=== PATIENT | male | born 1970 | race Caucasian/White ===

== ENCOUNTER 2023-02-12 12:27 | Outpatient (REF) | payer OTHER, SELFPAY ==
[2023-02-12 14:00] LABS: Hematocrit 45.9 % (42.0-52.0); Hemoglobin 15.8 g/dl (14.0-18.0); Mean Corpuscular HGB Conc 34.4 g/dl (31.0-36.0); Mean Corpuscular Hemoglobin 30.4 pg (27.0-33.0); Mean Corpuscular Volume 88.4 fL (80.0-98.0); Platelet Count 240 X10*3/uL (160-400); Red Blood Count 5.19 X10*6/uL (4.60-5.80); Red Cell Distribution Width 12.5 % (11.0-16.0)
[2023-02-12 14:21] LABS: Alanine Aminotransferase 37 U/L (0-40); Albumin Level 4.4 g/dL (3.5-5.0); Alkaline Phosphatase 63 U/L (39-117); Anion Gap 12 (12-20); Aspartate Amino Transferase 24 U/L (5-37); Bilirubin Total 0.4 mg/dL (0.0-1.0); Blood Urea Nitrogen 12 mg/dL (9-16); Calcium 9.4 mg/dL (8.4-10.2); Carbon Dioxide 23 mmol/L (22-29); Chloride 107 mmol/L (96-108); Cholesterol 165 mg/dL; Estimated Glomerular Filt Rate > 60; Glucose Fasting 145 mg/dL (60-99); HDL Cholesterol 30 mg/dL; LDL Cholesterol Calculated 112 mg/dl; Potassium 4.4 mmol/L (3.3-5.1); Sodium 138 mmol/L (135-145); Total Protein 6.7 g/dL (6.5-8.0); Triglycerides 119 mg/dL
[2023-02-12 14:43] LABS: TSH reflex Free T4 0.62 uIU/mL (0.32-4.0)
[2023-02-12 14:49] LABS: Creatinine Urine 162.78 mg/dL; Microalbum/Creatinine Ratio Ur 4.3 ug/mg cr
== END 2023-02-12 12:28 | disposition home or self-care (01) ==
LOC: HO.WFDLDS 12:27
PROVIDERS: Visit Provider Nurse Practitioner Family
DX: E11.9 Type 2 diabetes mellitus without complications (principal); E78.5 Hyperlipidemia, unspecified; F32.A Depression, unspecified; F41.9 Anxiety disorder, unspecified; I10 Essential (primary) hypertension; Z12.5 Encounter for screening for malignant neoplasm of prostate
CPT/HCPCS: 36415; 80053; 80061; 82043; 84153; 84443; 85027

== ENCOUNTER 2023-05-07 13:13 | Outpatient (AMB) | payer OTHER, SELFPAY ==
[2023-05-07 13:24] VITALS: BP 122/66; PULSE 58; RESP 12; TEMP 36.6; O2SAT 98; BMI 37.1
--- NOTE | 2023-05-07 13:24 | A.OFFPC_ITS ---
Vital Signs 05/07/23 13:24 Height 5 ft 7 in Weight 237 lb BMI 37.1 BP 122/66 Blood Pressure Location Rt brachial Position Sitting Respiration 12 Pulse 58 Pulse Source Pulse Oximeter Temp 97.8 F Temp Source Temporal Artery Scan Pulse Oximetry (%) 98 Oxygen Delivery Method Room Air Intake Visit Reasons: 3 mos diabetes, anxiety, depression, htn Visualization Developer Required: No Accompanied by: Self / Same As Patient Allergies No Known Allergies Allergy (Verified 05/07/23 13:54) Medication List - Last Reconciled 05/07/23 by Concha Garcia CNP aripiprazole 5 mg PO DAILY atorvastatin 20 mg PO DAILY dulaglutide (Trulicity) 1.5 mg (0.5 mL) subcut QWEEK 30 days escitalopram oxalate 20 mg PO DAILY eszopiclone 2 mg PO BEDTIME lisinopril 5 mg PO DAILY 30 days metformin ER 1,000 mg PO BID Tobacco use date assessed: 02/12/23 Dental Screening Dental Screen Date: 05/07/23 Did you have a dental visit in the last 12 months?: No Did you have a dental problem in the last 6 months where you did not have access to dental care?: No Was dental information given to patient?: Yes HPI HPI Comments History of Present Illness Details 52-year-old male presents for hypertension, diabetes, anxiety, and depression follow-up. He reports increased anxiety, depression, and sleep disturbance due to starting a new job. He works night shifts. He is followed by a therapist weekly and psychiatrist every 3-6 months. He states that he has not been contacted from podiatry and ophthalmology. [facility] Medical History Anxiety Depression Diabetes Insomnia Surgical History History of appendectomy Family History Mother Alcoholism Father Alcoholism Other Mental health disorder Substance abuse Social History Housing: Apartment Alcohol intake: never Patient Tobacco Use Status: Current everyday Tobacco user Cigarettes Per Day: 20 Years Smoked: 30 e-Cigarette/Vaping Use: Never Used service: No Current occupational status: employed and other Current occupation: [employer] Cognitive needs: No Hearing needs: No Vision needs: No Questionnaire PHQ-9 Over the last 2 weeks, how often have you been bothered by any of the following problems? 1. Little interest or pleasure in doing things: nearly every day 2. Feeling down, depressed, or hopeless: more than half the days 3. Trouble falling or staying asleep, or sleeping too much: nearly every day 4. Feeling tired or having little energy: more than half the days 5. Poor appetite or overeating: nearly every day 6. Feeling bad about yourself - or that you are a failure or have let yourself or your family down: more than half the days 7. Trouble concentrating on things, such as reading the newspaper or watching television: several days 8. Moving or speaking so slowly that other people could have noticed. Or the opposite - being so fidgety or restless that you have been moving around a lot more than usual: nearly every day 9. Thoughts that you would be better off or of hurting yourself in some way: not at all Total score: 19 Depression Screening Interpretation: Positive Depression Screening Follow-up: Existing condition and In treatment Source: Developed by Drs. Bala Gagnon, Denita Avila, Theodore Cleaning and colleagues, with an educational leyla from [employer]. Thrive Questionnaire Date Thrive assessed: 02/12/23 AVIS-7 AMB Questionnaire AVIS-7 Date AVIS - 7 assessed: 05/07/23 Feeling nervous, anxious, or on edge: 3 = Nearly every day Not being able to stop or control worryin = Nearly every day Worrying too much about different things: 3 = Nearly every day Trouble relaxin = Nearly every day Being so restless that it is hard to sit still: 3 = Nearly every day Becoming easily annoyed or irritable: 1 = Several days Feeling afraid as if something awful might happen: 1 = Several days Total AVIS-7 score (0-4 normal; 5-9 mild; 10-14 moderate; 15-21 severe): 17 Source: Developed by Drs. Bala Gagnon, Denita Avila, Theodore Cleaning and colleagues, with an educational leyla from [employer]. Review of Systems Const Details: Const Denies chills, Denies fatigue, Denies fever(s), Denies headache(s) and Denies weakness ENT Denies dizziness and Denies headache(s) Card Denies chest pain, Denies lightheadedness, Denies dyspnea and Denies other ( Palpitations) Resp Denies cough, Denies dyspnea, Denies wheezing and Denies other ( shortness of breath) GI Denies abdominal pain, Denies melena, Denies hematochezia, Denies change in bowel habits, Denies dyspepsia and Denies nausea Denies hematuria and Denies dysuria Musc Denies abnormal gait, Denies myalgias, Denies arthralgias, Denies numbness and Denies tingling Skin/Breast Denies rash, Denies unusual bruising and Denies wounds Neuro Denies abnormal gait, Denies dizziness, Denies headache(s), Denies memory loss, Denies numbness, Denies Sensory deficit (Neuro), Denies tingling and Denies weakness Psych Reports anxiety and Reports depression, Denies memory loss Endo Denies cold intolerance, Denies fatigue, Denies heat intolerance, Denies polydipsia and Denies polyuria Aller/Immun Denies wheezing Physical exam (Primary Care) Vital Signs: Last Vital Signs Temp 97.8 F 05/07/23 13:24 Pulse 58 05/07/23 13:24 Resp 12 05/07/23 13:24 BP 122/66 05/07/23 13:24 Pulse Ox 98 05/07/23 13:24 Oxygen Delivery Method Room Air 05/07/23 13:24 BMI result Body Mass Index 37.1 Tobacco/Smoking Status: Tobacco use Status Tobacco use date assessed 02/12/23 05/07/23 13:29 Patient Tobacco Use Status Current everyday Tobacco 05/07/23 13:29 e-Cigarette/Vaping Use Never Used 05/07/23 13:29 PHQ-9: PHQ-9 Score PHQ-9: Total score 05/07/23 13:39 Depression Screening Interpretation: Positive Depression Screening Follow-up: Existing condition and In treatment Thrive Assessment: Date of Thrive Assessment Date Thrive assessed 02/12/23 05/07/23 13:29 Const Other: General: no acute distress and well developed Nutritional Appearance: well nourished Orientation/consciousness: patient oriented x3 HENMT Head: Yes normocephalic and Yes atraumatic Eyes General: appearance normal, both eyes and all related structures Pupils: Equal, round and reactive pupils present EOM: EOMs intact bilaterally Resp Effort & Inspection: normal respiratory effort Auscultation: clear to auscultation bilaterally Cardio Rate: regular rate Rhythm: regular rhythm Heart sounds: S1 normal heart sound present, S2 normal heart sound present, no gallops, no murmurs and no rubs GI Palpation (GI): No Abdominal aortic bruit present, Soft to palpation, nontender, No hepatosplenomegaly present and No Rebound tenderness present Auscultation: normal bowel sounds General: Yes no CVA tenderness Back/Spine/Pelvis Back: no CVA tenderness Cervical Spine: cervical ROM normal and No Cervical spine tenderness Thoracic/Lumbar Spine: thoraco-lumbar ROM normal, No pain with thoraco-lumbar ROM, No thoracic spinal tenderness and No lumbar spinal tenderness Extrem General: Yes normal to inspection, No edema and No calf tenderness Skin General: warm and dry. Normal skin color. Normal skin turgor Lesions: no lesions Rashes: no rashes Trauma: no lacerations or abrasions Wounds: no wounds Nails: normal Neuro General: patient oriented x3, gait normal and no focal neuro deficit Cranial nerves: Yes Equal, round and reactive pupils present Cognition (Neuro): normal cognition Gait exam (Neuro): Normal gait present Motor exam (neuro): 5/5 motor strength present throughout Sensory Exam: No Sensory deficit (Neuro) Psych Appearance: grossly normal Affect: normal affect Attitude: cooperative Thought process: Normal thought process present Results AMB Hemoglobin A1c AMB Hemoglobin A1c 6.7 % Last Edit by Marika Figueroa MA on 05/07/23 13:46 Results Reviewed Results Reviewed: Laboratory Last Values Hgb A1c (Clinic) 6.7 % (4.0-6.0) H 05/07/23 13:45 Assessment and Plan Assessment & Plan (1) Hypertension: Code(s): I10 - Essential (primary) hypertension Plan: His blood pressure is controlled, 122/66, within goal of less than 130/80 Continue to take lisinopril as prescribed Low-sodium diet encouraged Return in 1 month for complete physical exam or sooner with symptoms or concerns Verbalized understanding and agreed with treatment plan. (2) Type 2 diabetes mellitus: Code(s): E11.9 - Type 2 diabetes mellitus without complications Plan: His A1c today is 6.7%, within goal of less than 7.0% Continue to take Trulicity and metformin as prescribed ADA diet and routine exercise encouraged Message sense to the MA to contact Podiatry and Ophthalmology regarding appointments for the patient Return in 1 month or sooner with symptoms or concerns Verbalized understanding and agreed with treatment plan. (3) Hyperlipidemia: Code(s): E78.5 - Hyperlipidemia, unspecified Plan: He is LDL in January 2023 was 112, above goal of less than 100 Lipid panel ordered. Encouraged to get fasting blood work done before next visit Continue take atorvastatin as prescribed Advised to limit foods high in saturated fat and avoid foods high in trans fat Routine exercise encouraged Return in 1 month Verbalized understanding and agreed with treatment plan. (4) Anxiety: Code(s): F41.9 - Anxiety disorder, unspecified Plan: He reports increased anxiety, depression, and sleep disturbance due to starting a new job. He works night shifts. PHQ-9 and AVIS-7 scores revealed moderately severe depression and severe anxiety Continue to take aripiprazole, escitalopram, and eszopiclone as prescribed Follow-up with therapist and psychiatrist as planned Routine exercise encouraged Return with worsening or new symptoms Verbalized understanding and agreed with treatment plan. (5) Depression: Code(s): F32.A - Depression, unspecified Plan: As above Orders: Orders Hemoglobin A1c Today E11.9 - Type 2 diabetes mellitus without complications Lipid Panel Today E78.5 - Hyperlipidemia, unspecified Coding Level of Care Code Est Pt Level 3 (46626) Diagnoses Hypertension I10 Type 2 diabetes mellitus E11.9 Hyperlipidemia E78.5 Anxiety F41.9 Depression F32.A Time Spent (min) 25
== END 2023-05-07 14:17 | disposition home or self-care (01) ==
PROVIDERS: Visit Provider Nurse Practitioner Family
DX: I10 Essential (primary) hypertension (principal); E11.9 Type 2 diabetes mellitus without complications; E78.5 Hyperlipidemia, unspecified; F41.9 Anxiety disorder, unspecified; F32.A Depression, unspecified
CPT/HCPCS: 99213

== ENCOUNTER 2023-05-07 14:03 | Outpatient (REF) | payer OTHER, SELFPAY | END 2023-05-07 14:04 | disposition home or self-care (01) | LOC: HO.LAB 14:03 | PROVIDERS: Visit Provider Nurse Practitioner Family | DX: Z13.89 Encounter for screening for other disorder (principal) ==

== ENCOUNTER 2024-01-20 11:39 | Outpatient (AMB) | payer OTHER, SELFPAY ==
[2024-01-20 11:56] VITALS: BP 116/70; PULSE 76; RESP 14; TEMP 36.6; O2SAT 99; BMI 35.4
--- NOTE | 2024-01-20 11:56 | A.OFFPC_ITS ---
Vital Signs 01/20/24 11:56 01/20/24 12:45 Height 5 ft 7 in Weight 226 lb 4 oz BMI 35.4 BP 116/70 110/70 Blood Pressure Location Lt brachial Rt brachial Position Sitting Sitting Respiration 14 Pulse 76 Pulse Source Pulse Oximeter Temp 97.8 F Temp Source Temporal Artery Scan Pulse Oximetry (%) 99 Oxygen Delivery Method Room Air Intake Visit Reasons: Diabetes check up Intake Note: patient needs refill on trulicity. 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 Accompanied by: Self / Same As Patient Allergies No Known Allergies Allergy (Verified 01/20/24 12:30) Medication List - Last Reconciled 01/20/24 by Concha Garcia CNP aripiprazole 5 mg PO DAILY atorvastatin 20 mg PO DAILY blood sugar diagnostic ([employer] Ultra Test strips) POC testing TID blood-glucose meter ([employer] Ultra2 Meter) POC testing TID dulaglutide (Trulicity) 1.5 mg (0.5 mL) subcut QWEEK 30 days escitalopram oxalate 20 mg PO DAILY eszopiclone 2 mg PO BEDTIME guanfacine ER 3 mg PO QPM lancets ([employer] UltraSoft 2 Lancet) POC testing TID lisinopril 5 mg PO DAILY 30 days metformin ER 500 mg PO BID 90 days Tobacco use date assessed: 01/20/24 Dental Screening Dental Screen Date: 01/20/24 Did you have a dental visit in the last 12 months?: No Did you have a dental problem in the last 6 months where you did not have access to dental care?: No Was dental information given to patient?: Yes HPI HPI Comments History of Present Illness Details 53-year-old male presents for diabetes f ollow-up His last office visit was in April 2023. He notes that he has not followed up because he has been very depressed. He continues to see his therapist once weekly and psychiatrist every 3 months. He denies anxiety or depression symptoms at this time He admits to taking Metformin and his psychotropic medications as prescribed wi thout adverse reactions. He has not been taking atorvastatin, and lisinopril since they ran out a year ago. He stopped taking Trulicity for a while after he stuck his finger during administration; he resumed taking the medication weekly in the past 2 weeks He offers no complaints and denies acute symptoms at this time [facility] Medical History (Updated 01/20/24 @ 12:07 by JAC Olsen) Tremor Insomnia Depression Anxiety Diabetes Surgical History History of appendectomy Family History Mother Alcoholism Father Alcoholism Other Mental health disorder Substance abuse Social History Housing: Apartment Alcohol intake: never Patient Tobacco Use Status: Current everyday Tobacco user Cigarette Packs Per Day: 0.5 Cigarettes Per Day: 10 Years Smoked: 30 e-Cigarette/Vaping Use: Never Used service: No Current occupational status: unemployed Cognitive needs: No Hearing needs: No Vision needs: No Questionnaire Thrive Questionnaire Date Thrive assessed: 02/12/23 AVIS-7 AMB Questionnaire AVIS-7 Date AVIS - 7 assessed: 05/07/23 Source: Developed by Drs. Bala Gagnon, Denita Avila, Theodore Cleaning and colleagues, with an educational leyla from [employer]. Review of Systems Const Details: Const Denies chills, Denies fatigue, Denies fever(s), Denies headache(s) and Denies weakness ENT Denies dizziness and Denies headache(s) Card Denies chest pain, Denies lightheadedness, Denies dyspnea and Denies other (Palpitations) Resp Denies cough, Denies dyspnea, Denies wheezing and Denies other ( shortness of breath) GI Denies abdominal pain, Denies melena, Denies hematochezia, Denies change in bowel habits, Denies dyspepsia and Denies nausea Denies hematuria and Denies dysuria Musc Denies abnormal gait, Denies myalgias, Denies arthralgias, Denies numbness and Denies tingling Skin/Breast Denies rash, Denies unusual bruising and Denies wounds Neuro Denies abnormal gait, Denies dizziness, Denies headache(s), Denies memory loss, Denies numbness, Denies Sensory deficit (Neuro), Denies tingling and Denies weakness Psych Denies anxiety, Denies depression, Denies memory loss Endo Denies cold intolerance, Denies fatigue, Denies heat intolerance, Denies polydipsia and Denies polyuria Aller/Immun Denies wheezing Physical exam (Primary Care) Vital Signs: Last Vital Signs Temp 97.8 F 01/20/24 11:56 Pulse 76 01/20/24 11:56 Resp 14 01/20/24 11:56 BP 116/70 01/20/24 11:56 Pulse Ox 99 01/20/24 11:56 Oxygen Delivery Method Room Air 01/20/24 11:56 BMI result Body Mass Index 35.4 Tobacco/Smoking Status: Tobacco use Status Tobacco use date assessed 01/20/24 01/20/24 12:08 Patient Tobacco Use Status Current everyday Tobacco 01/20/24 11:59 e-Cigarette/Vaping Use Never Used 01/20/24 11:59 Thrive Assessment: Date of Thrive Assessment Date Thrive assessed 02/12/23 01/20/24 11:59 Const Other: General: no acute distress and well developed Nutritional Appearance: well nourished Orientation/consciousness: patient oriented x3 HENMT Head: Yes normocephalic and Yes atraumatic Eyes General: appearance normal, both eyes and all related structures Pupils: Equal, round and reactive pupils present EOM: EOMs intact bilaterally Resp Effort & Inspection: normal respiratory effort Auscultation: clear to auscultation bilaterally Cardio Rate: regular rate Rhythm: regular rhythm Heart sounds: S1 normal heart sound present, S2 normal heart sound present, no gallops, no murmurs and no rubs GI Palpation (GI): No Abdominal aortic bruit present, Soft to palpation, nontender, No hepatosplenomegaly present and No Rebound tenderness present Auscultation: normal bowel sounds General: Yes no CVA tenderness Back/Spine/Pelvis Back: no CVA tenderness Cervical Spine: cervical ROM normal and No Cervical spine tenderness Thoracic/Lumbar Spine: thoraco-lumbar ROM normal, No pain with thoraco-lumbar ROM, No thoracic spinal tenderness and No lumbar spinal tenderness Extrem General: Yes normal to inspection, No edema and No calf tenderness Skin General: warm and dry. Normal skin color. Normal skin turgor Neuro General: patient oriented x3, gait normal and no focal neuro deficit Cranial nerves: Yes Equal, round and reactive pupils present Cognition (Neuro): normal cognition Gait exam (Neuro): Normal gait present Sensory Exam: No Sensory deficit (Neuro) Psych Appearance: grossly normal Affect: normal affect Attitude: cooperative Thought process: Normal thought process present Results AMB Hemoglobin A1c AMB Hemoglobin A1c 6.4 % Last Edit by JAC Olsen on 01/20/24 12:1 1 Results Reviewed Results Reviewed: Laboratory Last Values Hgb A1c (Clinic) 6.4 % (4.0-6.0) H 01/20/24 12:09 Assessment and Plan Assessment & Plan (1) Hypertension: Code(s): I10 - Essential (primary) hypertension Plan: Resting blood pressure is 110/70, within goal of less than 130/80 He has not taking lisinopril in a year. Will not restart lisinopril at this time Low-sodium diet encouraged Follow-up in 1 month for an extended physical exam or return sooner with symptoms or concerns Verbalized understanding and agreed with treatment plan (2) Type 2 diabetes mellitus: Code(s): E11.9 - Type 2 diabetes mellitus without complications Plan: His A1c today is 6.4%, within goal of less than 7.0%. Previous A1c was 6.7% He stop taking Trulicity for while and resume taking an old dose 2 weeks ago. Will not resume Trulicity at this time Continue to take metformin 500 mg twice daily ADA diet and routine exercise encouraged Will recheck A1c in 3 months Verbalized understanding and agreed with the plan (3) Hyperlipidemia: Code(s): E78.5 - Hyperlipidemia, unspecified Plan: He has not taking atorvastatin for year. Will not restart the medications at this time Will check lipid panel and make changes as needed Advised to limit foods high in saturated fat and avoid foods high in trans fat Routine exercise encouraged Verbalized understanding and agreed with treatment plan (4) Laboratory tests ordered as part of a complete physical exam (CPE): Code(s): Z00.00 - Encounter for general adult medical examination without abnormal findings Plan: Fasting labs ordered in preparation of a complete physical exam. Advised to fast for at least 10 hours before getting labs drawn. May drink water Verbalized understanding and agreed with treatment plan. Orders: Orders AMB Hemoglobin A1c Today E11.9 - Type 2 diabetes mellitus without complications Complete Blood Count Auto Diff Today Z00.00 - Encounter for general adult medical examination without abnormal findings TSH reflex Free T4 Today Z00.00 - Encounter for general adult medical examination without abnormal findings UA CC w/rflx Micro + Cult Today Z00.00 - Encounter for general adult medical examination without abnormal findings Comprehensive [place]. Panel Fast Today Z00.00 - Encounter for general adult medical examination without abnormal findings Lipid Panel Today Z00.00 - Encounter for general adult medical examination without abnormal findings Microalbumin, Random (w Creat) Today Z00.00 - Encounter for general adult medical examination without abnormal findings PSA, Ultra Sensitive Today Z00.00 - Encounter for general adult medical examination without abnormal findings Coding Level of Care Code Est Pt Level 4 (91184) Diagnoses Hypertension I10 Type 2 diabetes mellitus E11.9 Hyperlipidemia E78.5 Laboratory tests ordered as part of a complete physical exam (CPE) Z00.00
[2024-01-20 12:45] VITALS: BP 110/70
== END 2024-01-20 12:46 | disposition home or self-care (01) ==
PROVIDERS: PCP Nurse Practitioner Family; Visit Provider Nurse Practitioner Family
DX: I10 Essential (primary) hypertension (principal); E11.9 Type 2 diabetes mellitus without complications; E78.5 Hyperlipidemia, unspecified; Z00.00 Encounter for general adult medical examination without abnormal findings
CPT/HCPCS: 83036; 99214

== ENCOUNTER 2024-02-24 11:02 | Outpatient (AMB) | payer OTHER, SELFPAY ==
[2024-02-24 11:07] VITALS: BP 128/70; PULSE 54; RESP 14; TEMP 36.1; O2SAT 99; BMI 36.4
--- NOTE | 2024-02-24 11:07 | MHC.PC.OV ---
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 Required: No Accompanied by: Self / Same As Patient Allergies No Known Allergies Allergy (Verified 02/24/24 11:52) Medication List - Last Reconciled 02/24/24 by Concha Garcia CNP aripiprazole 5 mg PO DAILY atorvastatin 20 mg PO DAILY blood sugar diagnostic (ExteNet Systemsuch Ultra Test strips) POC testing TID blood-glucose meter (ExteNet Systemsuch Ultra2 Meter) POC testing TID escitalopram oxalate 20 mg PO DAILY eszopiclone 2 mg PO BEDTIME guanfacine ER 3 mg PO QPM lancets (AccountableTouch UltraSoft 2 Lancet) POC testing TID metformin ER 500 mg PO BID 90 days Tobacco use date assessed: 02/24/24 Dental Screening Dental Screen Date: 02/24/24 Did you have a dental visit in the last 12 months?: No Did you have a dental problem in the last 6 months where you did not have access to dental care?: No Was dental information given to patient?: Patient has dentist HPI HPI Comments History of Present Illness Details 53-year-old male presents for an extended physical exam He has past medical history significant for hypertension, type 2 diabetes, hyperlipidemia, anxiety, and depression He admits to taking his medications as prescribed without adverse reactions. [facility] is helping him with medication management He offers no complaints and denies acute symptoms at this time He forgot to do fasting blood work before this visit He admits to making healthy dietary changes and walking daily. He is interested in dietitian referral He is followed by a psychiatrist and therapist from [facility]. He sees his psychiatrist every 3 months and therapist every week He has never had a colonoscopy He has never been vaccinated for shingles He is not up-to-date on the flu vaccine His last eye exam was a few years ago He was last evaluated by Podiatry several years ago He smokes 10 cigarettes daily. He has been smoking at least 10 cigarettes daily for the past 36 years He drinks alcohol occasionally No recreational drugs [facility] Medical History Tremor Insomnia Depression Anxiety Diabetes Surgical History History of appendectomy Family History Mother Alcoholism Father Alcoholism Other Mental health disorder Substance abuse Social History Household Members: Family Housing: Apartment Are you a primary geriatric care manager to a significant other at home: No Do you presently have visiting nurse or other home services: Yes Alcohol intake: current Alcohol intake frequency: holidays/special occasions only Alcohol type: beer Patient Tobacco Use Status: Current everyday Tobacco user Cigarette Packs Per Day: 0.5 Cigarettes Per Day: 10 Years Smoked: 30 e-Cigarette/Vaping Use: Never Used Substance Use Type: Marijuana service: No Current occupational status: unemployed Cognitive needs: No Hearing needs: No Vision needs: No Questionnaire PHQ-9 Over the last 2 weeks, how often have you been bothered by any of the following problems? 1. Little interest or pleasure in doing things: more than half the days 2. Feeling down, depressed, or hopeless: more than half the days 3. Trouble falling or staying asleep, or sleeping too much: nearly every day 4. Feeling tired or having little energy: more than half the days 5. Poor appetite or overeating: nearly every day 6. Feeling bad about yourself - or that you are a failure or have let yourself or your family down: more than half the days 7. Trouble concentrating on things, such as reading the newspaper or watching television: not at all 8. Moving or speaking so slowly that other people could have noticed. Or the opposite - being so fidgety or restless that you have been moving around a lot more than usual: not at all 9. Thoughts that you would be better off or of hurting yourself in some way: not at all Total score: 14 Depression Screening Interpretation: Positive Depression Screening Done: Yes 92223 - PHQ-9 Billing: Yes Source: Developed by Drs. Bala Gagnon, Denita Avila, Theodore Cleaning and colleagues, with an educational leyla from [employer]. Thrive Questionnaire Date Thrive assessed: 02/24/24 I am a: Patient What is your living situation today?: I have a steady place to live Within the past 12 months, did the food you bought not last and you didn't have the money to get more?: Sometimes True Within the past 12 months, did you worry whether your food would run out before you got money to buy more?: Sometimes True Do you have trouble paying for medicines?: No Do you have trouble getting transportation to medical appointments?: No Do you have trouble paying your heating and electricity bill?: Yes Do you have trouble taking care of your child, family member or friend?: No Do you have trouble with day-to-day activities such as bathing, preparing meals, shopping, managing finances, etc.?: Yes Are you currently unemployed and looking for a job?: Yes Are you interested in more education?: Yes Please select the resources that you would like help with: Food, Utilities, Job search/training and Education THRIVE Score: 3 AUDIT C Alcohol Use Questionnaire (AUDIT-C) 1. How often do you have a drink containing alcohol?: Monthly or less 2. How many drinks containing alcohol do you have on a typical day when you are drinking?: 1 or 2 3. How often do you have six or more drinks on one occasion?: Never Total Score: 1 AVIS-7 AMB Questionnaire AVIS-7 Date AVIS - 7 assessed: 02/24/24 Feeling nervous, anxious, or on edge: 2 = More than half the days Not being able to stop or control worryin = Nearly every day Worrying too much about different things: 3 = Nearly every day Trouble relaxin = More than half the days Being so restless that it is hard to sit still: 2 = More than half the days Becoming easily annoyed or irritable: 0 = Not at all Feeling afraid as if something awful might happen: 2 = More than half the days Total AVIS-7 score (0-4 normal; 5-9 mild; 10-14 moderate; 15-21 severe): 14 Source: Developed by Drs. Bala Gagnon, Denita Avila, Theodore Cleaning and colleagues, with an educational leyla from [employer]. AVIS-7 Assessment Billing AVIS-7 Assessment Tool: AVIS-7 Assessment 53701 Review of Systems Const Details: Denies chills, Denies fatigue, Denies fever(s), Denies headache(s) and Denies weakness HEENT Denies change in vision, Denies dizziness, Denies headache(s), Denies hearing loss, Denies nasal congestion, Denies sinus pain, Denies sinus pressure and Denies sore throat Card Denies chest pain, Denies lightheadedness, Denies dyspnea and Denies other (palpitations) Resp Denies cough, Denies dyspnea and Denies wheezing GI Denies abdominal pain, Denies melena, Denies hematochezia, Denies change in bowel habits, Denies dyspepsia and Denies nausea Denies hematuria and Denies dysuria Musc Denies abnormal gait, Denies myalgias, Denies arthralgias, Denies numbness and Denies tingling Skin/Breast Denies rash, Denies unusual bruising and Denies wounds Neuro Denies abnormal gait, Denies dizziness, Denies headache(s), Denies memory loss, Denies numbness, Denies Sensory deficit (Neuro), Denies tingling and Denies weakness Psych Denies anxiety, Denies depression and Denies memory loss Endo Denies cold intolerance, Denies fatigue, Denies heat intolerance, Denies polydipsia and Denies polyuria Tod/Lymph Denies easy bleeding and Denies easy bruising Aller/Immun Denies wheezing Physical exam (Primary Care) Vital Signs: Last Vital Signs Temp 97 F 02/24/24 11:07 Pulse 54 02/24/24 11:07 Resp 14 02/24/24 11:07 BP 128/70 02/24/24 11:07 Pulse Ox 99 02/24/24 11:07 Oxygen Delivery Method Room Air 02/24/24 11:07 BMI result Body Mass Index 36.4 Tobacco/Smoking Status: Tobacco use Status Tobacco use date assessed 02/24/24 02/24/24 11:45 Patient Tobacco Use Status Current everyday Tobacco 02/24/24 11:18 e-Cigarette/Vaping Use Never Used 02/24/24 11:18 PHQ-9: PHQ-9 Score PHQ-9: Total score 14 02/24/24 11:45 Depression Screening Interpretation: Positive Thrive Assessment: Date of Thrive Assessment Date Thrive assessed 02/24/24 02/24/24 11:45 Const Other: General: no acute distress, well developed, alert and awake Nutritional Appearance: well nourished Orientation/consciousness: patient oriented x3 [facility] Head: Yes normocephalic and Yes atraumatic Ears: hearing grossly normal bilaterally and TM's normal bilaterally General nose exam: Normal external nose present and Normal nares present Mouth: Normal oral and palatal mucosa present and moist mucous membranes Teeth and gingiva: dentition normal Throat: Yes oropharynx normal Eyes Pupils: Equal, round and reactive pupils present and Pupil accommodation reflex normal EOM: EOMs intact bilaterally Neck Neck: Yes normal visual inspection, Yes no lymphadenopathy and Yes trachea midline Thyroid: Thyroid normal Carotids: no bruits Lymphatic: no lymphadenopathy noted Chest Chest palpation & inspection: normal inspection of the chest Resp Effort & Inspection: normal respiratory effort Auscultation: clear to auscultation bilaterally Cardio Rate: regular rate Rhythm: regular rhythm Heart sounds: S1 normal heart sound present, S2 normal heart sound present, no gallops, no murmurs and no rubs Bruits: no abdominal aortic bruits and no carotid bruits GI Palpation (GI): No Abdominal aortic bruit present, Soft to palpation, nontender, No hepatosplenomegaly present and No Rebound tenderness present Auscultation: normal bowel sounds General: Yes no CVA tenderness Back/Spine/Pelvis Back: no CVA tenderness Cervical Spine: cervical ROM normal and No Cervical spine tenderness Thoracic/Lumbar Spine: thoraco-lumbar ROM normal, No pain with thoraco-lumbar ROM, No thoracic spinal tenderness and No lumbar spinal tenderness Skin General: warm and dry. Normal skin color. Normal skin turgor Lesions: no lesions Rashes: no rashes Trauma: no lacerations or abrasions Wounds: no wounds Nails: normal Neuro General: patient oriented x3, gait normal and CN's II-XI intact bilaterally Cranial nerves: Yes Equal, round and reactive pupils present Cognition (Neuro): normal cognition Gait exam (Neuro): Normal gait present Motor exam (neuro): 5/5 motor strength present throughout Sensory Exam: No Sensory deficit (Neuro) Deep tendon reflexes (DTR's): Right patellar reflex intensity grade: 2+ and Left patellar reflex intensity grade: 2+ Extrem General: Yes normal to inspection, No edema and No calf tenderness Psych Appearance: grossly normal Affect: normal affect Attitude: cooperative Thought process: Normal thought process present Assessment and Plan Assessment & Plan (1) Normal physical examination, routine: Code(s): Z00.00 - Encounter for general adult medical examination without abnormal findings Plan: No significant physical restrictions or limitations noted Continue current treatment regimen Healthy diet and routine exercise encouraged Encouraged to get fasting blood work done Follow-up in 2 month for hypertension and diabetes Return sooner with symptoms or concerns Verbalized understanding and agreed with treatment plan (2) Hypertension: Code(s): I10 - Essential (primary) hypertension Plan: Blood pressure is 120/70, within goal of less than 130/80 He has not currently on antihypertensives Low-sodium diet encouraged Follow-up in 2 month Verbalized understanding and agreed with treatment plan (3) Type 2 diabetes mellitus: Code(s): E11.9 - Type 2 diabetes mellitus without complications Plan: Recent A1c 6.4%, above goal of less than 7.0% Continue current treatment regimen ADA diet and routine exercise encouraged Referred to Ophthalmology and Podiatry for annual eye and foot exam respectively Follow-up in 2 months (4) Anxiety: Code(s): F41.9 - Anxiety disorder, unspecified Plan: Reports controlled anxiety and depression symptoms PHQ-9 and AVIS-7 scores revealed moderate depression and anxiety Continue with current treatment plan Followed by [facility] psychiatry (5) Depression: Code(s): F32.A - Depression, unspecified Plan: As above (6) Colon cancer screening: Code(s): Z12.11 - Encounter for screening for malignant neoplasm of colon Plan: He has never had a colonoscopy Referred to [facility] gastroenterology for a colonoscopy (7) Smoking: Code(s): F17.200 - Nicotine dependence, unspecified, uncomplicated Plan: He has been smoking at least 10 cigarettes daily for the past 36 years Declines medication treatment for smoking cessation at this time Instructed on the health risks and complications of cigarette smoking and encouraged stop smoking He may inform his PCP if he changes his mind on medication treatment for smoking cessation (8) Obesity (BMI 30-39.9): Code(s): E66.9 - Obesity, unspecified Plan: He currently weighs 232 lb, BMI is 36.4 Healthy diet and routine exercise encouraged Referred to [facility] dietitian/engineering and operations director Orders: Referrals Ophthalmology Referral E11.9 - Type 2 diabetes mellitus without complications Gastroenterology Referral Z12.11 - Encounter for screening for malignant neoplasm of colon Podiatry Referral E11.9 - Type 2 diabetes mellitus without complications Nutrition/Dietitian Referral E66.9 - Obesity, unspecified Coding Level of Care Code Est Pt Level 4 (02036) Est Pt Prev Care 40-64y(56435) Diagnoses Normal physical examination, routine Z00.00 Hypertension I10 Type 2 diabetes mellitus E11.9 Anxiety F41.9 Depression F32.A Colon cancer screening Z12.11 Smoking F17.200 Obesity (BMI 30-39.9) E66.9 Additional Codes AVIS-7 Assessment Billing - AVIS-7 Assessment Tool: AVIS-7 Assessment 35211 ([id number])
[2024-02-24 12:00] VITALS: BP 120/70
== END 2024-02-24 12:20 | disposition home or self-care (01) ==
PROVIDERS: PCP Nurse Practitioner Family; Visit Provider Nurse Practitioner Family
DX: Z00.00 Encounter for general adult medical examination without abnormal findings (principal); I10 Essential (primary) hypertension; E11.9 Type 2 diabetes mellitus without complications; F41.9 Anxiety disorder, unspecified; F32.A Depression, unspecified; Z12.11 Encounter for screening for malignant neoplasm of colon; F17.200 Nicotine dependence, unspecified, uncomplicated; E66.9 Obesity, unspecified
CPT/HCPCS: 99396

== ENCOUNTER 2024-02-24 12:28 | Outpatient (REF) | payer OTHER, SELFPAY ==
[2024-02-24 14:24] LABS: MANUAL DIFF FLAG NO
[2024-02-24 14:28] LABS: Appearance Urine Clear; Color Urine Yellow; Glucose Urine UA 250 mg/dL (Negative); Leukocyte Esterase Urine Negative (Negative); Nitrite Urine Negative (Negative); PH 6.5 (5.0-9.0); Urine Blood Negative (Negative); Urine Ketones Trace mg/dL (Negative); Urine Protein Negative (Neg-Trace)
[2024-02-24 14:29] LABS: Basophils Absolute Auto 0.1 X10*3/uL (0.0-0.2); Basophils Percent Auto 0.7 % (0-2); Eosinophils Absolute Auto 0.2 X10*3/uL (0.0-0.4); Eosinophils Percent Auto 2.9 % (0-4); Hematocrit 41.4 % (42.0-52.0); Hemoglobin 14.6 g/dl (14.0-18.0); Imm Gran Abs Auto 0.03 X10*3/uL (0.00-0.03); Imm Gran Pct Auto 0.4 % (0.0-0.4); Lymphocytes Absolute Auto 2.9 X10*3/uL (1.2-4.9); Lymphocytes Percent Auto 34.6 % (20-40); Mean Corpuscular HGB Conc 35.3 g/dl (31.0-36.0); Mean Corpuscular Hemoglobin 31.1 pg (27.0-33.0); Mean Corpuscular Volume 88.3 fL (80.0-98.0); Mean Platelet Volume 9.9 fL (9.4-12.4); Monocytes Absolute Auto 0.5 X10*3/uL (0.1-1.2); Monocytes Percent Auto 6.5 % (2-11); Neutrophils Absolute Auto 4.6 x10*3/uL (2.0-8.3); Neutrophils Percent Auto 54.9 % (45-73); Platelet Count 253 X10*3/uL (160-400); Red Blood Count 4.69 X10*6/uL (4.60-5.80); Red Cell Distribution Width 12.5 % (11.0-16.0); White Blood Count 8.3 X10*3/uL (4.8-10.8)
[2024-02-24 15:19] LABS: Creatinine Urine 168.38 mg/dL; Microalbum/Creatinine Ratio Ur 4.1 ug/mg cr (<30)
[2024-02-24 15:19] LABS: Alanine Aminotransferase 28 U/L (0-40); Albumin Level 4.1 g/dL (3.5-5.0); Alkaline Phosphatase 89 U/L (39-117); Anion Gap 13 (12-20); Aspartate Amino Transferase 20 U/L (5-37); Bilirubin Total 0.3 mg/dL (0.0-1.0); Blood Urea Nitrogen 11 mg/dL (9-16); Calcium 9.5 mg/dL (8.4-10.2); Carbon Dioxide 25 mmol/L (22-29); Chloride 102 mmol/L (96-108); Cholesterol 174 mg/dL (<200); Estimated Glomerular Filt Rate > 60; Glucose Fasting 157 mg/dL (60-99); HDL Cholesterol 43 mg/dL (>40); LDL Cholesterol Calculated 110 mg/dL (<100); Potassium 3.8 mmol/L (3.3-5.1); Sodium 136 mmol/L (135-145); Total Protein 6.8 g/dL (6.5-8.0); Triglycerides 109 mg/dL (<150)
[2024-02-24 15:21] LABS: TSH reflex Free T4 1.14 uIU/mL (0.32-4.0)
[2024-02-24 15:37] LABS: Estimated Average Glucose 151 mg/dL; Hemoglobin A1c % 6.9 % (<6.0)
[2024-02-28 17:14] LABS: PSA, Ultra Sensitive 0.59 ng/mL
== END 2024-02-24 12:29 | disposition home or self-care (01) ==
LOC: HO.WFDLDS 12:28
PROVIDERS: Visit Provider Nurse Practitioner Family
DX: Z00.00 Encounter for general adult medical examination without abnormal findings (principal); Z12.5 Encounter for screening for malignant neoplasm of prostate; E11.9 Type 2 diabetes mellitus without complications; E78.5 Hyperlipidemia, unspecified
CPT/HCPCS: 36415; 80053; 80061; 81003; 82043; 82570; 83036; 84153; 84443; 85025

== ENCOUNTER 2024-06-14 11:30 | Outpatient (AMB) | payer OTHER, SELFPAY ==
--- NOTE | 2024-06-14 11:41 | A.OFFPC_ITS ---
Vital Signs 06/14/24 11:46 Height 5 ft 7 in Weight 221 lb 2 oz BMI 34.6 BP 122/70 Blood Pressure Location Lt brachial Position Sitting Respiration 16 Pulse 61 Pulse Source Pulse Oximeter Temp 98.2 F Temp Source Oral Pulse Oximetry (%) 95 Oxygen Delivery Method Room Air Intake Visit Reasons: est / htn Intake Note: patient here to follow up on HTN AND DM. 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 He has not been exercise He offers no complaints and denies acute symptoms at this time [facility] Medical History Tremor Insomnia Depression Anxiety Diabetes Surgical History History of appendectomy Family History Mother Alcoholism Father Alcoholism Other Mental health disorder Substance abuse Social History Household Members: Family Both parents involved: No Caregiver staying overnight: No Housing: Apartment Are you a primary youth care specialist to a significant other at home: No Do you presently have visiting nurse or other home services: Yes 75 years or older and lives alone: No Alcohol intake: current Alcohol intake frequency: holidays/special occasions only Alcohol type: beer Patient Tobacco Use Status: Current everyday Tobacco user Cigarette Packs Per Day: 0.5 Cigarettes Per Day: 10 Years Smoked: 30 e-Cigarette/Vaping Use: Never Used Substance Use Type: Marijuana service: No Current occupational status: unemployed Cognitive needs: No Hearing needs: No Vision needs: No Questionnaire Thrive Questionnaire Date Thrive assessed: 02/24/24 AVIS-7 AMB Questionnaire AVIS-7 Date AVIS - 7 assessed: 02/24/24 Source: Developed by Drs. Bala Gagnon, Denita Avila, Theodore Cleaning and colleagues, with an educational leyla from [employer]. Review of Systems Const Details: Const Denies chills, Denies fatigue, Denies fever(s), Denies headache(s) and Denies weakness ENT Denies dizziness and Denies headache(s) Card Denies chest pain, Denies lightheadedness, Denies dyspnea and Denies other (Palpitations) Resp Denies cough, Denies dyspnea, Denies wheezing and Denies other ( shortness of breath) GI Denies abdominal pain, Denies melena, Denies hematochezia, Denies change in bowel habits, Denies dyspepsia and Denies nausea Denies hematuria and Denies dysuria Musc Denies abnormal gait, Denies myalgias, Denies arthralgias, Denies numbness and Denies tingling Skin/Breast Denies rash, Denies unusual bruising and Denies wounds Neuro Denies abnormal gait, Denies dizziness, Denies headache(s), Denies memory loss, Denies numbness, Denies Sensory deficit (Neuro), Denies tingling and Denies weakness Psych Denies anxiety, Denies depression, Denies memory loss Endo Denies cold intolerance, Denies fatigue, Denies heat intolerance, Denies polydipsia and Denies polyuria Aller/Immun Denies wheezing Physical exam (Primary Care) Vital Signs: Last Vital Signs Temp 98.2 F 06/14/24 11:46 Pulse 61 06/14/24 11:46 Resp 16 06/14/24 11:46 BP 122/70 06/14/24 11:46 Pulse Ox 95 06/14/24 11:46 Oxygen Delivery Method Room Air 06/14/24 11:46 BMI result Body Mass Index 34.6 Tobacco/Smoking Status: Tobacco use Status Tobacco use date assessed 06/14/24 06/14/24 11:49 Patient Tobacco Use Status Current everyday Tobacco 06/14/24 11:41 e-Cigarette/Vaping Use Never Used 06/14/24 11:41 Thrive Assessment: Date of Thrive Assessment Date Thrive assessed 02/24/24 06/14/24 11:41 Const Other: General: no acute distress and well developed Nutritional Appearance: well nourished Orientation/consciousness: patient oriented x3 [facility] Head: Yes normocephalic and Yes atraumatic Eyes General: appearance normal, both eyes and all related structures Pupils: Equal, round and reactive pupils present EOM: EOMs intact bilaterally Resp Effort & Inspection: normal respiratory effort Auscultation: clear to auscultation bilaterally Cardio Rate: regular rate Rhythm: regular rhythm Heart sounds: S1 normal heart sound present, S2 normal heart sound present, no gallops, no murmurs and no rubs GI Palpation (GI): No Abdominal aortic bruit present, Soft to palpation, nontender, No hepatosplenomegaly present and No Rebound tenderness present Auscultation: normal bowel sounds General: Yes no CVA tenderness Back/Spine/Pelvis Back: no CVA tenderness Cervical Spine: cervical ROM normal and No Cervical spine tenderness Thoracic/Lumbar Spine: thoraco-lumbar ROM normal, No pain with thoraco-lumbar ROM, No thoracic spinal tenderness and No lumbar spinal tenderness Extrem General: Yes normal to inspection, No edema and No calf tenderness Skin General: warm and dry. Normal skin color. Normal skin turgor Lesions: no lesions Neuro General: patient oriented x3, gait normal and no focal neuro deficit Cranial nerves: Yes Equal, round and reactive pupils present Cognition (Neuro): normal cognition Gait exam (Neuro): Normal gait present Sensory Exam: No Sensory deficit (Neuro) Psych Appearance: grossly normal Affect: normal affect Attitude: cooperative Thought process: Normal thought process present Results AMB Hemoglobin A1c AMB Hemoglobin A1c 7.5 % Last Edit by Ashwini Ortiz on 06/14/24 12:12 Assessment and Plan Assessment & Plan (1) Hypertension: Code(s): I10 - Essential (primary) hypertension Plan: Blood pressure is 122/70, within goal of less than 130/80 Continue current treatment regimen Low-sodium diet encouraged Follow-up in 3 months or sooner with symptoms or concerns Verbalized understanding and agreed with the treatment plan (2) Type 2 diabetes mellitus: Code(s): E11.9 - Type 2 diabetes mellitus without complications Plan: A1c today is 7.5%, above goal of less than 7.0%. Previous A1c was 6.9% Will increase metformin to 1000 mg in the morning and 500 mg at night. Advised to take as prescribed ADA diet and routine exercise encouraged Follow-up in 3 months Verbalized understanding and agreed with the treatment plan (3) Hyperlipidemia: Code(s): E78.5 - Hyperlipidemia, unspecified Plan: He has not taking atorvastatin since he ran out refill a long time ago Atorvastatin 20 mg daily refilled. Advised to take as prescribed Encouraged to limit foods high in saturated fat and avoid foods high in trans fat Routine exercise encouraged He has been fasting for more than 10 hours and will get lipid panel blood work done today. Will review results and make changes as needed Verbalized understanding and agreed with the plan Orders: Orders AMB Hemoglobin A1c Today Z13.9 - Encounter for screening, unspecified Medications: New metformin ER 1000 mg QAM 500 mg QPM 30 days 90 tabs 0RF Changed From atorvastatin 20 mg PO DAILY To atorvastatin 20 mg PO DAILY 30 days 30 tabs 3RF Discontinued metformin ER Discontinued Reason: Change Referral Type 500 mg PO BID 90 days 180 tabs 0RF Coding Level of Care Code Est Pt Level 4 (57301) Diagnoses Hypertension I10 Type 2 diabetes mellitus E11.9 Hyperlipidemia E78.5
[2024-06-14 11:46] VITALS: BP 122/70; PULSE 61; RESP 16; TEMP 36.8; O2SAT 95; BMI 34.6
== END 2024-06-14 12:21 | disposition home or self-care (01) ==
PROVIDERS: PCP Nurse Practitioner Family; Visit Provider Nurse Practitioner Family
DX: I10 Essential (primary) hypertension (principal); E11.9 Type 2 diabetes mellitus without complications; E78.5 Hyperlipidemia, unspecified; Z13.9 Encounter for screening, unspecified
CPT/HCPCS: 83036; 99214

== ENCOUNTER 2024-06-14 12:42 | Outpatient (REF) | payer OTHER, SELFPAY ==
[2024-06-14 15:00] LABS: Cholesterol 236 mg/dL (<200); HDL Cholesterol 40 mg/dL (>40); LDL Cholesterol Calculated 147 mg/dL (<100); Triglycerides 249 mg/dL (<150)
== END 2024-06-14 12:43 | disposition home or self-care (01) ==
LOC: HO.WFDLDS 12:42
PROVIDERS: Visit Provider Nurse Practitioner Family
DX: Z00.00 Encounter for general adult medical examination without abnormal findings (principal)
CPT/HCPCS: 36415; 80061

== ENCOUNTER 2024-12-06 11:26 | Outpatient (AMB) | payer OTHER, SELFPAY ==
--- OUTSIDE RECORDS SUMMARY | 2024-12-06 11:28 | XMS_ITS | Encounter Summary ---
Author Organization [facility] Address [address] [place] [address] Care Team Providers Care Computer Typesetter Keyliner Name Role Phone Juan Sullivan MD Primary Care Provider Unavail Betsy Garcia MD Primary Care Provider Nichol Fields MD Primary Care Provider [phone] Reason for Visit * Reason Onset Date Comments Pre-visit Diabetes Lab Adult Medicine 07/26/2013 Encounter Details Date Type Department Care Team Description 07/26/2013 Telephone Medicine/Pediatrics - [address] [id number] Juan Sullivan MD Pre-visit Diabetes Lab Adult Medicine Social History Tobacco Use Types Packs/Day Years Used Date Smoking Tobacco: Every Day Cigarettes 1 Smokeless Tobacco: Never Alcohol Use Standard Drinks/Week Comments No 0 (1 standard drink = 0.6 oz pur e alcohol) Sex Assigned at Date Recorded Not on file documented as of this encounter Miscellaneous Notes * Telephone Encounter - Mi Luna M.A. - 07/26/2013 2:53 PM EDT A message was left on the patients voice mail to return call to [facility]. If patient calls back, please instruct the patient to have their diabetes lab work completed at least 3 days prior to their upcoming appointment in Adult Medicine on 08/16/13 at 1:00 pm with Nanette Sullivan. Let the patient know our lab is open on the weekends in the [place] office only. The patient does not need to be fasting to complete the lab work. documented in this encounter Plan of Treatment Not on file documented as of this encounter Visit Diagnoses Not on filedocumented in this encounter Care Teams Computer Typesetter Keyliner Relationship Specialty Start Date End Date Juan Sullivan MD PCP - General Internal Medicine 11/08/11 09/04/15 Betsy Bundy MD PCP - General Internal Medicine 09/05/15 03/22/21 Nichol Mcqueen MD PCP - General Internal Medicine 03/23/21 documented as of this encounter
--- OUTSIDE RECORDS SUMMARY | 2024-12-06 11:28 | XMS_ITS | Encounter Summary ---
Author Organization [facility] Address [address] [place] [address] Care Team Providers Care Clerical Specialist Name Role Phone Nichol Mcqueen MD Primary Care Provider [phone] Reason for Visit * Reason Onset Date Comments Faxed Refill 04/28/2023 Encounter Details Date Type Department Care Team Description 04/28/2023 Refill Internal Medicine - [address], [address] [place], [place] [id number] Nichol Mcqueen MD [address] [place] [phone] Faxed Refill Social History Tobacco Use Types Packs/Day Years Used Date Smoking Tobacco: Every Day Cigarettes 1 Smokeless Tobacco: Never Comments:quit 04/30/16 Alcohol Use Standard Drinks/Week Comments No 0 (1 standard drink = 0.6 oz pur e alcohol) Sex Assigned at Date Recorded Not on file documented as of this encounter Miscellaneous Notes * Telephone Encounter - Cait Chaudhry M.A. - 04/29/2023 11:12 AM EDT No visits with results within 3 Month(s) from this visit. Latest known visit with results is: Appointment on 10/30/2021 Component Date Value ??? CREATININE, RANDOM URINE 10/30/2021 207 ??? MICROALBUMIN, RANDOM 10/30/2021 35.7 (H) ??? MICROALB/CRE RATIO RANDOM 10/30/2021 17.2 * Telephone Encounter - Yumiko Carreon - 04/28/2023 2:57 PM EDT Cynthia 10/07/2022 Nov documented in this encounter Plan of Treatment Not on file documented as of this encounter Visit Diagnoses Not on filedocumented in this encounter Care Teams Clerical Specialist Relationship Specialty Start Date End Date Nichol Mcqueen MD PCP - General Internal Medicine 03/23/21 documented as of this encounter
--- OUTSIDE RECORDS SUMMARY | 2024-12-06 11:28 | XMS_ITS | Encounter Summary ---
Author Organization [facility] Address [address] [place] [address] Care Team Providers Care Ip Counsel Name Role Phone Nichol Mcqueen MD Primary Care Provider [phone] Reason for Visit * Reason Onset Date Comments refill request 11/09/2021 Encounter Details Date Type Department Care Team Description 11/09/2021 Refill Internal Medicine - [address], [address] [place], [place] [id number] Nichol Mcqueen MD [address] [place] [phone] refill request Social History Tobacco Use Types Packs/Day Years Used Date Smoking Tobacco: Every Day Cigarettes 1 Smokeless Tobacco: Never Comments:quit 04/30/16 Alcohol Use Standard Drinks/Week Comments No 0 (1 standard drink = 0.6 oz pur e alcohol) Sex Assigned at Date Recorded Not on file documented as of this encounter Miscellaneous Notes * Telephone Encounter - Araceli Ahuja Sandhu - 11/09/2021 1:09 PM EST Patient would like script to be: E-PRESCRIBED/FAXED TO PHARMACY WHEN WAS THE PATIENT'S LAST APPOINTMENT WITH THE PRESCRIBING PROVIDER? 04-20-2021 Does patient have an upcoming appointment? Yes 01-08-2022 (THE MEDICATION REQUESTED IS ON THE MED LIST ABOVE) Did you check the Pharmacy information above?: YES Patient wants: 90 -day supply Is this a mail order prescription request ? NO Patients current insurance carrier is: Payor: [employer] [facility] MCR / Plan: [facility] / Product Type: HMO [id number] documented in this encounter Plan of Treatment Not on file documented as of this encounter Visit Diagnoses Not on filedocumented in this encounter Care Teams Ip Counsel Relationship Specialty Start Date End Date Nichol Mcqueen MD PCP - General Internal Medicine 03/23/21 documented as of this encounter
--- OUTSIDE RECORDS SUMMARY | 2024-12-06 11:28 | XMS_ITS | Clinical Summary ---
Author Organization [facility] Address [address] [place] [address] Care Team Providers Care Doggy Daycare Activities Director Name Role Phone Nichol Mcqueen MD Primary Care Provider [phone] Allergies Active Allergy Reactions Severity Noted Date Comments Cats 01/06/2012 Medications Medication Sig Dispensed Refills Start Date End Date Status Blood Glucose Calibration (OT ULTRA/FASTTK CNTRL SOLN) SOLN Check q month 1 Each 1 01/20/2012 Active Insulin Pen Needle (BD PEN NEEDLE JACKIE U/F) 32G X 4 MM Misc Inject 1 Device into the skin daily. 100 Each 5 03/31/2019 Active citalopram (CELEXA) 20 MG tablet Take 20 mg by mouth daily. 1 08/30/2019 Active ONETOUCH DELICA LANCETS FINE Misc Test blood sugar once daily 100 Each 0 05/24/2020 Active Blood Glucose Monitoring Suppl (ONE TOUCH ULTRA 2) w/Device KitIndications:Uncont rolled type 2 diabetes with neuropathy Check bs daily 1 Kit 0 05/11/2021 Active ONE TOUCH ULTRASOFT LANCETS Misc Test daily 100 Each 0 05/11/2021 Active atorvastatin (LIPITOR) 20 MG tabletIndications:Oth er hyperlipidemia TAKE 1 TABLET BY MOUTH DAILY 30 Tablet 1 08/06/2022 Active lisinopril (PRINIVIL,ZESTRIL) 10 MG tablet Take 0.5 Tablets by mouth daily. 15 Tablet 0 08/21/2022 Active Continuous Blood Gluc Managing Partner [employer] (FreeStyle Kevin 2 [place]) Device 1 Device by Does not apply route Once. 1 Each 0 10/08/2022 Active Continuous Blood Gluc Sensor (FreeStyle Kevin 2 Sensor) Misc 1 Device by Does not apply route every 14 days. 2 Each 11 10/08/2022 Active OneTouch Ultra strip USE TO TEST BLOOD SUGAR EVERY DAY 100 Strip 3 11/01/2022 Active Trulicity 1.5 MG/0.5ML Solution Pen-injector ADMINISTER 1.5 MG UNDER THE SKIN EVERY 7 DAYS 6 mL 0 02/03/2023 Active metformin (GLUCOPHAGE-XR) 500 MG 24 hr tablet TAKE 2 TABLETS BY MOUTH TWICE DAILY 360 Tablet 0 02/03/2023 Active glipiZIDE (GLUCOTROL) 5 MG 24 hr tablet TAKE 4 TABLETS BY MOUTH EVERY DAY 360 Tablet 1 04/30/2023 Active Active Problems Patient Care Coordination No te Formatting of this note is d ifferent from the original. Checking Your Blood Sugars Please check your blood sugars every day. Please check your sugars at the following times of day: before breakfast Your Blood Sugar Goals Pre Meal: 90-130 2 hours after meals: 110-160 Bedtime: 110-150 Use the Results ?? Bring your glucometer to every appointment ?? Write your fingerstick blood sugars down on a log sheet or record book. Bring them to your appointment ?? Look for patterns in the numbers. The results help you and your provider make decisions about your diabetes treatment plan. Your Results and your Goals Your Result / Date of Completion Your Goal / How Often to Assess Component Value Date HGBA1C 5.8 05/10/2015 Less than 7% --- 2-4 times per year BP Readings from Last 1 Encounters: 10/06/15 100/60 Less than 140/90 --- once per year Component Value Date MALBCR 1.4 02/08/2015 Less than 30 --- once per year Component Value Date LDL 119 02/08/2015 Less than 100 --- once per year Wt Readings from Last 1 Encounters: 10/06/15 245 lb (111.131 kg) Your goal weight by next visit: 245 --- reassess 2-4 times a year Health Maintenance Due Topic Date Due ? ? Depression Screen 1983 ? ? Diabetes: Annual Eye Exam 1989 ? ? Influenza (##1 of 1) 06/20/2015 ? ? Diabetes: Annual Care Plan 07/01/2015 ? ? Diabetes: Blood Sugar Control Test (Hgba1c) 09/10/2015 Your Action Plan Your diabetes is well controlled and no changes are required to your current plan. Contact me if you experience any barriers to care such as inability to purchase your medication, difficulty getting to your appointments or difficulty understanding your care plan When to Call your Healthcare Provider If your blood sugar falls below 70 and you do not know why or you become unconscious If you are sick and unable to take liquids because or nausea or vomiting If you have a fever over 101 If your blood sugar is 300 or higher on greater than 3 separate occasions during the same week If you are just unsure what to do Educational Resources [employer] (www.diabetes.org) Centers for Disease Control and Prevention (www.cdc.gov/diabetes) This care plan was created in collaboration with Clinton Regalado on 10/06/2015 Problem Noted Date Uncontrolled type 2 diabetes with neurop athy 01/03/2017 Left inguinal hernia 10/18/2016 Obesity 10/06/2015 Abnormal EKG 12/14/2013 Hyperlipidemia 05/27/2012 HTN (hypertension) 04/23/2012 Depression 01/06/2012 Anxiety disorder 01/06/2012 Former tobacco use 01/06/2012 Overview: Quit April 2016 Adenoma of left adrenal gland Overview: benign per radiology report Benítez 10/08/16 Resolved Problems Problem Noted Date Resolved Date Type 2 diabetes mellitus, controlled 07/01/2014 01/03/2017 DM (diabetes mellitus), type 2, uncontrolled 04/201407/01/2014 Overview: A1C 8.2 on 12/14/13. Morbid obesity 12/14/2013 05/10/2015 Immunizations Name Administration Dates Next Due Hepatitis B > 19yrs 05/10/2015,11/10/2014,2013 Influenza (> 6 Months) 06/17/2017,2015,10/06/2015,10/03,07/05/2013,07/27/2012 Influenza Vaccine-preservati ve Free-quadrivalent 4 Years 07/06/2019 PPD-RBMG 10/03/2014 Pneumoccoccal(Adult) Polysac charide PPSV23 06/17/2017,01/20/2012 Tdap 01/20/2012 Family History Medical History Relation Name Comments Cancer of the Colon Other 2 neg hx Cancer of the Breast Other 3 neg hx ovarian cancer [Other] Other 4 neg h x Cancer of the Prostate Other 5 neg h x Relation Name Status Comments Brother Alive Father UNK cause/age, went blind Maternal Grandfather Maternal Grandmother HI unk age Mother Alive hip surgery, in a wheelchair Other 1 Other 2 Other 3 Other 4 Other 5 Paternal Grandfather Paternal Grandmother Sister Alive times 3 Son Alive times 2, one bi ological and one step Social History Tobacco Use Types Packs/Day Years Used Date Smoking Tobacco: Every Day Cigarettes 1 Smokeless Tobacco: Never Tobacco Cessation:Ready to Q uit: Yes Comments:quit 04/30/16 Alcohol Use Standard Drinks/Week Comments No 0 (1 standard drink = 0.6 oz pur e alcohol) Sex Assigned at Date Recorded Not on file Last Filed Vital Signs Vital Sign Reading Time Taken Comments Blood Pressure 128/76 11/09/2019 1:26 PM EST Pulse 96 11/09/2019 1:26 PM EST Temperature 36.6 ??C (97.9 ??F) 11/09/2019 1:26 PM ES T Respiratory Rate 18 11/09/2019 1:26 PM EST Oxygen Saturation - - Inhaled Oxygen Concentration - - Weight 115.4 kg (254 lb 6 oz) 11/09/2019 1:26 PM EST Height 170.2 cm (5' 7 ) 11/09/2019 1:26 PM EST Body Mass Index 39.84 11/09/2019 1:26 PM EST Plan of Treatment Health Maintenance Due Date Last Done Comments Covid-19 Vaccine (#1) 01[birth year]09/1971 DEPRESSION SCREEN 07/09/2017 07/09/2016, 01/06/2012 DIABETES: ANNUAL EYE EXAM 01/20/2018 01/20/2017 BASELINE HEALTH EXAM 40-64 07/09/201807/09, 10/03/2014, 01/06/2012 DIABETES: ANNUAL FOOT EXAM 11/10/202011/10, 03/20/2017, 2016, Additional history exists COLON CANCER SCREENING 2021 SHINGLES VACCINE (1 of 2) 2021 DTAP/TDAP/TD (2 - Td or Tdap) 01/19/2022 01/20/2012 DIABETES: BLOOD SUGAR CONTRO L TEST (HGBA1C) 01/28/2022 10/30/2021, 11/09/2019, 07/06/2019, Additional history exists DIABETES/HEART DISEASE: DON AL CHOLESTEROL (LDL) 10/30/2022 10/30/2021, 07/06/2019, 03/30/2019, Additional history exists DIABETES: ANNUAL URINE PROTE IN TEST (MICROALBUMIN) 10/30/2022 10/30/2021, 06/09/2018, 04/03/2017, Additional history exists INFLUENZA (#1) 2024 07/06/2019, 05/21, 06/17/2017, Additional history exists BMI CHECK/ADVISE 10/20/2024 10/07/2022, , 11/09/2019 (Completed), Additional history exists PNEUMOCOCCAL VACCINE FOR HIG H RISK PATIENTS Completed 06/17/2017, 01/20/2012 Care Teams Doggy Daycare Activities Director Relationship Specialty Start Date End Date Nichol Mcqueen MD PCP - General Internal Medicine 03/23/21
--- OUTSIDE RECORDS SUMMARY | 2024-12-06 11:28 | XMS_ITS | Encounter Summary ---
Author Organization [facility] Address [address] [place] [address] Care Team Providers Care Hydraulic Lift Driver Name Role Phone Nichol Mcqueen MD Primary Care Provider [phone] Reason for Visit * Reason Comments E-prescribe Rx Request Encounter Details Date Type Department Care Team Description 04/29/2022 Refill Adult Medicine [address] [address] Nichol Mcqueen MD [address] [place] [phone] E-prescribe Rx Request Social History Tobacco Use Types Packs/Day Years Used Date Smoking Tobacco: Every Day Cigarettes 1 Smokeless Tobacco: Never Comments:quit 04/30/16 Alcohol Use Standard Drinks/Week Comments No 0 (1 standard drink = 0.6 oz pur e alcohol) Sex Assigned at Date Recorded Not on file documented as of this encounter Miscellaneous Notes * Telephone Encounter - Presley Hernandez M.A. - 05/03/2022 9:16 AM EDT Lab Results Component Value Date HGBA1C 6.8 10/30/2021 HGBA1C 9.0 11/09/2019 HGBA1C 10.1 07/06/2019 HGBA1C 12.4 03/30/2019 HGBA1C 9.5 06/09/2018 Rx pended fwd to dr. Mcqueen * Telephone Encounter - Angelita Mayen - 05/03/2022 9:11 AM EDT Cynthia 05/10/21 Left msg to contact office documented in this encounter Plan of Treatment Not on file documented as of this encounter Visit Diagnoses Not on filedocumented in this encounter Care Teams Hydraulic Lift Driver Relationship Specialty Start Date End Date Nichol Mcqueen MD PCP - General Internal Medicine 03/23/21 documented as of this encounter
--- OUTSIDE RECORDS SUMMARY | 2024-12-06 11:28 | XMS_ITS | Encounter Summary ---
Author Organization [facility] Address [address] [place] [address] Care Team Providers Care Guard Chief Name Role Phone Betsy Bundy MD Primary Care Provider Nichol Fields MD Primary Care Provider [phone] Encounter Details Date Type Department Care Team Description 10/09/2015 Orders Only Medicine/Pediatrics - [address] [phone] Violeta Mills PA-C Social History Tobacco Use Types Packs/Day Years Used Date Smoking Tobacco: Every Day Cigarettes 1 Smokeless Tobacco: Never Alcohol Use Standard Drinks/Week Comments No 0 (1 standard drink = 0.6 oz pur e alcohol) Sex Assigned at Date Recorded Not on file documented as of this encounter Plan of Treatment Not on file documented as of this encounter Visit Diagnoses Not on filedocumented in this encounter Care Teams Guard Chief Relationship Specialty Start Date End Date Betsy Bundy MD PCP - General Internal Medicine 09/05/15 03/22/21 Nichol Mcqueen MD PCP - General Internal Medicine 03/23/21 documented as of this encounter
--- OUTSIDE RECORDS SUMMARY | 2024-12-06 11:28 | XMS_ITS | Encounter Summary ---
Author Organization [facility] Address [address] [place] [address] Care Team Providers Care Electrician Maintenance Name Role Phone Nichol Mcqueen MD Primary Care Provider [phone] Reason for Visit * Reason Onset Date Comments Letter 08/20/2022 Encounter Details Date Type Department Care Team Description 08/20/2022 Telephone Internal Medicine - [address], [address] [place], [place] [id number] Nichol Mcqueen MD [address] [place] [phone] Letter Social History Tobacco Use Types Packs/Day Years Used Date Smoking Tobacco: Every Day Cigarettes 1 Smokeless Tobacco: Never Comments:quit 04/30/16 Alcohol Use Standard Drinks/Week Comments No 0 (1 standard drink = 0.6 oz pur e alcohol) Sex Assigned at Date Recorded Not on file documented as of this encounter Miscellaneous Notes * Telephone Encounter - Belinda Sagastume - 10/08/2022 8:[address] Mcqueen please advise patient is requesting status on letter. * Telephone Encounter - Araceli Sandhu - 10/07/2022 3:29 PM EST Patient had a telehealth appt today and was checking on if this letter would be submitted To patient and he would present letter to [employer] He has been out of work and is a diabetic- so he electricity will not be turned. Send letter to patient once completed * Telephone Encounter - Belinda Sagastume - 08/22/2022 1:05 PM EDT No answer unable to leave message. If patient calls back please schedule appt with provider. Patient has not been seen in a year provider cannot write letter until she sees patient. * Telephone Encounter - Nichol Mcqueen MD - 08/22/2022 6:44 AM EDT Patient needs to be seen first, and then we will see if he will qualify for this * Telephone Encounter - Maxine Alfonso - 08/20/2022 1:35 PM EDT Letter requested for: Patient , [employer] Reason for letter: Patient needs a letter stating his condition with diabetes Specific notations needed in body of letter: Unknown Date needed for completion: As soon as possible before the August When completed: Mailed to their home at: [address] [facility] [place] [address] documented in this encounter Plan of Treatment Not on file documented as of this encounter Visit Diagnoses Not on filedocumented in this encounter Care Teams Electrician Maintenance Relationship Specialty Start Date End Date Nichol Mcqueen MD PCP - General Internal Medicine 03/23/21 documented as of this encounter
--- OUTSIDE RECORDS SUMMARY | 2024-12-06 11:28 | XMS_ITS | Encounter Summary ---
Author Organization [facility] Address [address] [place] [address] Care Team Providers Care Customer Success Advocate Name Role Phone Nichol Mcqueen MD Primary Care Provider [phone] Reason for Visit * Reason Comments E-prescribe Rx Request Encounter Details Date Type Department Care Team Description 07/19/2021 Refill Internal Medicine - [address], [address] [place], [place] [id number] Nichol Mcqueen MD [address] [place] [phone] E-prescribe Rx Request Social History Tobacco Use Types Packs/Day Years Used Date Smoking Tobacco: Every Day Cigarettes 1 Smokeless Tobacco: Never Comments:quit 04/30/16 Alcohol Use Standard Drinks/Week Comments No 0 (1 standard drink = 0.6 oz pur e alcohol) Sex Assigned at Date Recorded Not on file documented as of this encounter Miscellaneous Notes * Telephone Encounter - Maggie Bynum L.P.N. - 07/24/2021 2:00 PM EDT Metformin 500 mg XR take 2 tabs 2 times daily Last refill 04/17/2021 #360 no refill Lab Results Component Value Date HGBA1C 9.0 11/09/2019 HGBA1C 10.1 07/06/2019 HGBA1C 12.4 03/30/2019 HGBA1C 9.5 06/09/2018 HGBA1C 7.7 02/23/2018 * Telephone Encounter - Rosa Elena Sinha - 07/24/2021 1:16 PM EDT Cynthia 05/10/21 documented in this encounter Plan of Treatment Not on file documented as of this encounter Visit Diagnoses Not on filedocumented in this encounter Care Teams Customer Success Advocate Relationship Specialty Start Date End Date Nichol Mcqueen MD PCP - General Internal Medicine 03/23/21 documented as of this encounter
--- OUTSIDE RECORDS SUMMARY | 2024-12-06 11:28 | XMS_ITS | Encounter Summary ---
Author Organization [facility] Address [address] [place] [address] Care Team Providers Care Product Technician Name Role Phone Nichol Mcqueen MD Primary Care Provider [phone] Reason for Visit * Reason Onset Date Comments refill request 12/10/2022 Encounter Details Date Type Department Care Team Description 12/10/2022 Refill Internal Medicine - [address], [address] [place], [place] [phone] Nichol Mcqueen MD [address] [place] [phone] refill request Social History Tobacco Use Types Packs/Day Years Used Date Smoking Tobacco: Every Day Cigarettes 1 Smokeless Tobacco: Never Comments:quit 04/30/16 Alcohol Use Standard Drinks/Week Comments No 0 (1 standard drink = 0.6 oz pur e alcohol) Sex Assigned at Date Recorded Not on file documented as of this encounter Miscellaneous Notes * Telephone Encounter - Radha Batres MA - 12/11/2022 9:26 AM EST No visits with results within 3 Month(s) from this visit. Latest known visit with results is: Appointment on 10/30/2021 Component Date Value ??? CREATININE, RANDOM URINE 10/30/2021 207 ??? MICROALBUMIN, RANDOM 10/30/2021 35.7 (H) ??? MICROALB/CRE RATIO RANDOM 10/30/2021 17.2 * Telephone Encounter - Yumiko Carreon - 12/10/2022 9:18 AM EST Cynthia 10/07/2022 Nov 04/03/2023 documented in this encounter Plan of Treatment Not on file documented as of this encounter Visit Diagnoses Not on filedocumented in this encounter Care Teams Product Technician Relationship Specialty Start Date End Date Nichol Mcqueen MD PCP - General Internal Medicine 03/23/21 documented as of this encounter
--- OUTSIDE RECORDS SUMMARY | 2024-12-06 11:28 | XMS_ITS | Encounter Summary ---
Author Organization [facility] Address [address] [place] [address] Care Team Providers Care Ribbon Inker Name Role Phone Nichol Mcqueen MD Primary Care Provider [phone] Reason for Visit * Reason Onset Date Comments Faxed Order 10/09/2022 [facility] last clinical Notes Encounter Details Date Type Department Care Team Description 10/09/2022 Telephone Internal Medicine - [address], [address] [place] [address] Nichol Mcqueen MD [address] [place] [phone] Faxed Order ([facility] last clinical Notes) Social History Tobacco Use Types Packs/Day Years Used Date Smoking Tobacco: Every Day Cigarettes 1 Smokeless Tobacco: Never Comments:quit 04/30/16 Alcohol Use Standard Drinks/Week Comments No 0 (1 standard drink = 0.6 oz pur e alcohol) Sex Assigned at Date Recorded Not on file documented as of this encounter Miscellaneous Notes * Telephone Encounter - Mary Anne Barroso M.A. - 10/10/2022 10:46 AM EST Faxed notes to [facility] * Telephone Encounter - Iram Duong - 10/09/2022 1:20 PM EST [facility] Requesting Last clinical Notes documented in this encounter Plan of Treatment Not on file documented as of this encounter Visit Diagnoses Not on filedocumented in this encounter Care Teams Ribbon Inker Relationship Specialty Start Date End Date Nichol Mcqueen MD PCP - General Internal Medicine 03/23/21 documented as of this encounter
--- OUTSIDE RECORDS SUMMARY | 2024-12-06 11:28 | XMS_ITS | Encounter Summary ---
Author Organization [facility] Address [address] [place] [address] Care Team Providers Care Feller Hand Name Role Phone Nichol Mcqueen MD Primary Care Provider [phone] Reason for Visit * Reason Onset Date Comments Faxed Refill 12/24/2021 Encounter Details Date Type Department Care Team Description 12/24/2021 Refill Adult Medicine [address] [address] Nichol Mcqueen MD [address] [place] [phone] Faxed Refill Social History Tobacco Use Types Packs/Day Years Used Date Smoking Tobacco: Every Day Cigarettes 1 Smokeless Tobacco: Never Comments:quit 04/30/16 Alcohol Use Standard Drinks/Week Comments No 0 (1 standard drink = 0.6 oz pur e alcohol) Sex Assigned at Date Recorded Not on file documented as of this encounter Miscellaneous Notes * Telephone Encounter - Tonja Sandoval MA - 12/24/2021 4:28 PM EST Lab Results Component Value Date HGBA1C 6.8 10/30/2021 HGBA1C 9.0 11/09/2019 HGBA1C 10.1 07/06/2019 HGBA1C 12.4 03/30/2019 HGBA1C 9.5 06/09/2018 BP Readings from Last 5 Encounters: 11/09/19 128/76 07/06/19 126/80 03/30/19 122/70 06/12/18 118/80 02/23/18 112/60 * Telephone Encounter - Jessica Abad - 12/24/2021 10:36 AM EST Patient would like script to be: E-PRESCRIBED/FAXED TO PHARMACY WHEN WAS THE PATIENT'S LAST APPOINTMENT IN ADULT MEDICINE? 05/10/2021 WHEN WAS THE LAST TIME THE PATIENT SAW THEIR PCP? Same as above Does patient have an upcoming appointment? Yes 01/08/2022 (THE MEDICATION REQUESTED IS ON THE MED LIST ABOVE) All of the medications requested were on the CURRENT MEDS list Did you check the Pharmacy information above?: YES Patient wants: 90 -day supply Is this a mail order prescription request ? NO If the refill is from a FAXED refill request what is the RX # listed on the fax? N/A Patients current insurance carrier is: Payor: [employer] [facility] [employer] MCR / Plan: [facility] / Product Type: HMO [id number] documented in this encounter Plan of Treatment Not on file documented as of this encounter Visit Diagnoses Not on filedocumented in this encounter Care Teams Feller Hand Relationship Specialty Start Date End Date Nichol Mcqueen MD PCP - General Internal Medicine 03/23/21 documented as of this encounter
--- OUTSIDE RECORDS SUMMARY | 2024-12-06 11:28 | XMS_ITS | Encounter Summary ---
Author Organization [facility] Address [address] [place] [address] Care Team Providers Care Ict Business Development Manager Name Role Phone Betsy Bundy MD Primary Care Provider Nichol Fields MD Primary Care Provider [phone] Encounter Details Date Type Department Care Team Description 04/02/2018 Release of Information Medical Records [address] [place] [id number] Abstract, Provider Social History Tobacco Use Types Packs/Day Years Used Date Smoking Tobacco: Former Cigarettes 1 Smokeless Tobacco: Never Comments:quit 04/30/16 Alcohol Use Standard Drinks/Week Comments No 0 (1 standard drink = 0.6 oz pur e alcohol) Sex Assigned at Date Recorded Not on file documented as of this encounter Plan of Treatment Not on file documented as of this encounter Visit Diagnoses Not on filedocumented in this encounter Care Teams Ict Business Development Manager Relationship Specialty Start Date End Date Betsy Bundy MD PCP - General Internal Medicine 09/05/15 03/22/21 Nichol Mcqueen MD PCP - General Internal Medicine 03/23/21 documented as of this encounter
--- OUTSIDE RECORDS SUMMARY | 2024-12-06 11:28 | XMS_ITS | Encounter Summary ---
Author Organization [facility] Address [address] [place] [address] Care Team Providers Care Help Desk Manager Name Role Phone Nichol Mcqueen MD Primary Care Provider [phone] Reason for Visit * Reason Onset Date Comments LAB WORK 04/11/2021 Encounter Details Date Type Department Care Team Description 04/11/2021 Telephone Internal Medicine - [address], [address] [place], [place] [id number] Nichol Mcqueen MD [address] [place] [phone] LAB WORK Social History Tobacco Use Types Packs/Day Years Used Date Smoking Tobacco: Former Cigarettes 1 Smokeless Tobacco: Never Comments:quit 04/30/16 Alcohol Use Standard Drinks/Week Comments No 0 (1 standard drink = 0.6 oz pur e alcohol) Sex Assigned at Date Recorded Not on file documented as of this encounter Miscellaneous Notes * Telephone Encounter - Christina Jordan M.A. - 04/17/2021 1:17 PM EDT Unable to reach, my chart msg sent * Telephone Encounter - Nichol Mcqueen MD - 04/17/2021 12:51 PM EDT Patient has appointment this , does he want to do labs before his appointment?? * Telephone Encounter - Christina Jordan M.A. - 04/13/2021 8:37 AM EDT Please review labs done 1 year ago. * Telephone Encounter - Meme Vincent - 04/11/2021 12:22 PM EDT Patient requesting all lab work to be done at [email or web address] [address], [place] [address] prior to his first audio visit with [facility] documented in this encounter Plan of Treatment Not on file documented as of this encounter Visit Diagnoses Not on filedocumented in this encounter Care Teams Help Desk Manager Relationship Specialty Start Date End Date Nichol Mcqueen MD PCP - General Internal Medicine 03/23/21 documented as of this encounter
--- OUTSIDE RECORDS SUMMARY | 2024-12-06 11:28 | XMS_ITS | Encounter Summary ---
Author Organization [facility] Address [address] [place] [address] Care Team Providers Care Screw Cutter Name Role Phone Juan Sullivan MD Primary Care Provider Unavail able Betsy Bundy MD Primary Care Provider UnavailNichol Ghosh MD Primary Care Provider [phone] Encounter Details Date Type Department Care Team Description 01/06/2012 Business Doc Medical Records [address] [place] [id number] Abstract, Provider Social History Tobacco Use Types [...] on filedocumented in this encounter Care Teams Screw Cutter Relationship Specialty Start Date End Date Juan Sullivan MD PCP - General Internal Medicine 11/08/11 09/04/15 Betsy Bundy MD PCP - General Internal Medicine 09/05/15 03/22/21 Nichol Mcqueen MD PCP - General Internal Medicine 03/23/21 documented as of this encounter
--- OUTSIDE RECORDS SUMMARY | 2024-12-06 11:28 | XMS_ITS | Encounter Summary ---
Author Organization [facility] Address [address] [place] [address] Care Team Providers Care Doffer Name Role Phone Juan Sullivan MD Primary Care Provider Unavail Betsy Garcia MD Primary Care Provider UnavailNichol Ghosh MD Primary Care Provider [phone] Reason for Visit * Reason Onset Date Comments Pre-visit Diabetes Lab Adult Medicine 08/23/201508/30 Encounter Details Date Type Department Care Team Description 08/23/2015 Telephone Medicine/Pediatrics - [address] [id number] Violeta Mills PA-C Pre-visit Diabetes Lab Adult Medicine (08/30) Social History Tobacco Use Types Packs/Day Years Used Date Smoking Tobacco: Every Day Cigarettes 1 Smokeless Tobacco: Never Alcohol Use Standard Drinks/Week Comments No 0 (1 standard drink = 0.6 oz pur e alcohol) Sex Assigned at Date Recorded Not on file documented as of this encounter Miscellaneous Notes * Telephone Encounter - Sarahi Corona - 08/23/2015 8:59 AM EST Sent patient an email advising them to complete diabetic lab work at least three days prior to their upcoming appointment. documented in this encounter Plan of Treatment Not on file documented as of this encounter Results * (ABNORMAL) HEMOGLOBIN A1C (10/06/2015 11:41 AM EST) Glycosylated Hemoglobin A1C 6.1(H) 4.0 - 6.0 % 10/06/2015 3:25 PM EST [facility] Comment: HbA1C VALUES MAY NOT ACCURATELY REFLECT MEAN BLOOD GLUCOSE IN PATIENTS WITH HEMOGLOBIN VARIANTS SUCH HbF, HbS. 10/06/2015 11:4 1 AM EST 10/06/2015 11:42 AM EST Violeta Mills PA-C LAB Performing Organization Address City/State/[facility] Co de Phone Number [address] documented in this encounter Visit Diagnoses Diagnosis Type 2 diabetes mellitus, controlled (HCC)- Primary Type II or unspecified type diabetes mellitus without mention of complication, not stated as uncontrolled documented in this encounter Care Teams Doffer Relationship Specialty Start Date End Date Juan Sullivan MD PCP - General Internal Medicine 11/08/11 09/04/15 Betsy Bundy MD PCP - General Internal Medicine 09/05/15 03/22/21 Nichol Mcqueen MD PCP - General Internal Medicine 03/23/21 documented as of this encounter
--- OUTSIDE RECORDS SUMMARY | 2024-12-06 11:28 | XMS_ITS | Encounter Summary ---
Author Organization [facility] Address [address] [place] [address] Care Team Providers Care Meat Grader Name Role Phone Nichol Mcqueen MD Primary Care Provider [phone] Reason for Visit * Reason Onset Date Comments medication problems 01/16/2022 Encounter Details Date Type Department Care Team Description 01/16/2022 Telephone Internal Medicine - [address], [address] [place], [place] [phone] Nichol Mcqueen MD [address] [place] [phone] medication problems Social History Tobacco Use Types Packs/Day Years Used Date Smoking Tobacco: Every Day Cigarettes 1 Smokeless Tobacco: Never Comments:quit 04/30/16 Alcohol Use Standard Drinks/Week Comments No 0 (1 standard drink = 0.6 oz pur e alcohol) Sex Assigned at Date Recorded Not on file documented as of this encounter Miscellaneous Notes * Telephone Encounter - Presley Hernandez M.A. - 01/21/2022 10:27 AM EDT I called pt unable to get through will call gain later to clarify below * Telephone Encounter - Tri Pradhan - 01/16/2022 4:24 PM EDT Tati from [facility] calling stating patient mention haven't been prescribed for the correct test stripsand meter. Would like for us to call patient to clarify which would be the correct one for patient. documented in this encounter Plan of Treatment Not on file documented as of this encounter Visit Diagnoses Not on filedocumented in this encounter Care Teams Meat Grader Relationship Specialty Start Date End Date Nichol Mcqueen MD PCP - General Internal Medicine 03/23/21 documented as of this encounter
--- OUTSIDE RECORDS SUMMARY | 2024-12-06 11:28 | XMS_ITS | Encounter Summary ---
Author Organization [facility] Address [address] [place] [address] Care Team Providers Care Casing Wringer Operator Name Role Phone Betsy Bundy MD Primary Care Provider Nichol Fields MD Primary Care Provider [phone] Encounter Details Date Type Department Care Team Description 07/09/2016 Wellness Visit Medical Records [address] [place] [address] Juan Sullivan MD Social History Tobacco Use Types Packs/Day Years [...] on filedocumented in this encounter Care Teams Casing Wringer Operator Relationship Specialty Start Date End Date Betsy Bundy MD PCP - General Internal Medicine 09/05/15 03/22/21 Nichol Mcqueen MD PCP - General Internal Medicine 03/23/21 documented as of this encounter
--- NOTE | 2024-12-06 11:30 | MHC.PC.OV ---
Vital Signs 12/06/24 11:40 12/06/24 12:19 Height 5 ft 7 in Weight 227 lb 6 oz BMI 35.6 BP 130/78 126/78 Blood Pressure Location Rt brachial Rt brachial Position Sitting Sitting Respiration 14 Pulse 76 Pulse Source Pulse Oximeter Temp 98.7 F Temp Source Oral Pulse Oximetry (%) 96 Oxygen Delivery Method Room Air Intake Visit Reasons: DM, HTN, and HLD Intake Note: DM and HTN F/u Allergies No Known Allergies Allergy (Verified 12/06/24 11:39) Tobacco use date assessed: 06/14/24 Dental Screening Dental Screen Date: 02/24/24 HPI HPI Comments History of Present Illness Details 54-year-old male presents for hypertension, diabetes, and hyperlipidemia follow-up. He has been taking metformin ER 1000 mg in the morning and 500 mg every evening but ran out of the medication a few days ago. His last random glucose was 390. He has not been taking atorvastatin since he ran out of refills sometimes last fall. His last office visit was on 06/14/2024. His A1c was 7.5% He is followed by a psychiatrist at the [facility] every 3 months. He lost his therapist from the [facility] due to multiple no shows. He is working on getting a new therapist. He notes that his anxiety and depressive symptoms are generally well controlled. No acute symptoms at this time. [facility] Medical History Tremor Insomnia Depression Anxiety Diabetes Surgical History History of appendectomy Family History Mother Alcoholism Father Alcoholism Other Mental health disorder Substance abuse Social History Household Members: Family Both parents involved: No Caregiver staying overnight: No Housing: Apartment Are you a primary acute care assistant to a significant other at home: No Do you presently have visiting nurse or other home services: Yes 75 years or older and lives alone: No Alcohol intake: current Alcohol intake frequency: holidays/special occasions only Alcohol type: beer Patient Tobacco Use Status: Current everyday Tobacco user Cigarette Packs Per Day: 0.5 Cigarettes Per Day: 10 Years Smoked: 30 e-Cigarette/Vaping Use: Never Used Substance Use Type: Marijuana service: No Current occupational status: unemployed Cognitive needs: No Hearing needs: No Vision needs: No Questionnaire PHQ-9 Over the last 2 weeks, how often have you been bothered by any of the following problems? 1. Little interest or pleasure in doing things: several days 2. Feeling down, depressed, or hopeless: several days 3. Trouble falling or staying asleep, or sleeping too much: several days 4. Feeling tired or having little energy: several days 5. Poor appetite or overeating: several days 6. Feeling bad about yourself - or that you are a failure or have let yourself or your family down: not at all 7. Trouble concentrating on things, such as reading the newspaper or watching television: not at all 8. Moving or speaking so slowly that other people could have noticed. Or the opposite - being so fidgety or restless that you have been moving around a lot more than usual: not at all 9. Thoughts that you would be better off or of hurting yourself in some way: not at all Total score: 5 Depression Screening Interpretation: Positive Depression Screening Follow-up: Existing condition Depression Screening Done: Yes Source: Developed by Drs. Bala Gagnon, Denita Avila, Theodore Cleaning and colleagues, with an educational leyla from [employer]. Thrive Questionnaire Date Thrive assessed: 02/24/24 I am a: Patient What is your living situation today?: I have a steady place to live Within the past 12 months, did the food you bought not last and you didn't have the money to get more?: Sometimes True Within the past 12 months, did you worry whether your food would run out before you got money to buy more?: Sometimes True Do you have trouble paying for medicines?: No Do you have trouble getting transportation to medical appointments?: No Do you have trouble paying your heating and electricity bill?: Yes Do you have trouble taking care of your child, family member or friend?: No Do you have trouble with day-to-day activities such as bathing, preparing meals, shopping, managing finances, etc.?: I choose not to answer this question Are you currently unemployed and looking for a job?: Yes Are you interested in more education?: No Please select the resources that you would like help with: Food Currently or been in a relationship where the following occur: I choose not to answer THRIVE Score: 3 AUDIT C Alcohol Use Questionnaire (AUDIT-C) 1. How often do you have a drink containing alcohol?: Never Total Score: 0 AVIS-7 AMB Questionnaire AVIS-7 Date AVIS - 7 assessed: 02/24/24 Feeling nervous, anxious, or on edge: 1 = Several days Not being able to stop or control worryin = Several days Worrying too much about different things: 1 = Several days Trouble relaxin = Several days Being so restless that it is hard to sit still: 1 = Several days Becoming easily annoyed or irritable: 0 = Not at all Feeling afraid as if something awful might happen: 0 = Not at all Total AVIS-7 score (0-4 normal; 5-9 mild; 10-14 moderate; 15-21 severe): 5 Source: Developed by Drs. Bala Gagnon, Denita Avila, Theodore Cleaning and colleagues, with an educational leyla from [employer]. Review of Systems Const Details: Const Denies chills, Denies fatigue, Denies fever(s), Denies headache(s) and Denies weakness ENT Denies dizziness and Denies headache(s) Card Denies chest pain, Denies lightheadedness, Denies dyspnea and Denies other (Palpitations) Resp Denies cough, Denies dyspnea, Denies wheezing and Denies other ( shortness of breath) GI Denies abdominal pain, Denies melena, Denies hematochezia, Denies change in bowel habits, Denies dyspepsia and Denies nausea Denies hematuria and Denies dysuria Musc Denies abnormal gait, Denies myalgias, Denies arthralgias, Denies numbness and Denies tingling Skin/Breast Denies rash, Denies unusual bruising and Denies wounds Neuro Denies abnormal gait, Denies dizziness, Denies headache(s), Denies memory loss, Denies numbness, Denies Sensory deficit (Neuro), Denies tingling and Denies weakness Psych Denies anxiety, Denies depression, Denies memory loss Endo Denies cold intolerance, Denies fatigue, Denies heat intolerance, Denies polydipsia and Denies polyuria Aller/Immun Denies wheezing Physical exam (Primary Care) Tobacco/Smoking Status: Tobacco use Status Tobacco use date assessed 06/14/24 12/06/24 11:31 Patient Tobacco Use Status Current everyday Tobacco 12/06/24 11:31 e-Cigarette/Vaping Use Never Used 12/06/24 11:31 PHQ-9: PHQ-9 Score PHQ-9: Total score 5 12/06/24 11:31 Depression Screening Interpretation: Positive Depression Screening Follow-up: Existing condition Thrive Assessment: Date of Thrive Assessment Date Thrive assessed 02/24/24 12/06/24 11:31 Currently or been in a relationship where the following occur: I choose not to answer Const Other: General: no acute distress and well developed Nutritional Appearance: well nourished Orientation/consciousness: patient oriented x3 HENMT Head: Yes normocephalic and Yes atraumatic Eyes General: appearance normal, both eyes and all related structures Pupils: Equal, round and reactive pupils present EOM: EOMs intact bilaterally Resp Effort & Inspection: normal respiratory effort Auscultation: clear to auscultation bilaterally Cardio Rate: regular rate Rhythm: regular rhythm Heart sounds: S1 normal heart sound present, S2 normal heart sound present, no gallops, no murmurs and no rubs GI Palpation (GI): No Abdominal aortic bruit present, Soft to palpation, nontender, No hepatosplenomegaly present and No Rebound tenderness present Auscultation: normal bowel sounds General: Yes no CVA tenderness Back/Spine/Pelvis Back: no CVA tenderness Cervical Spine: cervical ROM normal and No Cervical spine tenderness Thoracic/Lumbar Spine: thoraco-lumbar ROM normal, No pain with thoraco-lumbar ROM, No thoracic spinal tenderness and No lumbar spinal tenderness Extrem General: Yes normal to inspection, No edema and No calf tenderness Skin General: warm and dry. Normal skin color. Normal skin turgor Neuro General: patient oriented x3, gait normal and no focal neuro deficit Cranial nerves: Yes Equal, round and reactive pupils present Cognition (Neuro): normal cognition Gait exam (Neuro): Normal gait present Sensory Exam: No Sensory deficit (Neuro) Psych Appearance: grossly normal Affect: normal affect Attitude: cooperative Thought process: Normal thought process present Results AMB Hemoglobin A1c AMB Hemoglobin A1c 8.3 % Last Edit by Christophe Romero CMA on 12/06/24 11:45 Coding Level of Care Code Est Pt Level 4 (12419) Diagnoses Hypertension I10 Type 2 diabetes mellitus E11.9 Hyperlipidemia E78.5 Assessment & Plan Assessment & Plan (1) Hypertension: Code(s): I10 - Essential (primary) hypertension Category: Medical Plan: Resting blood pressure is 126/78, within goal of less than 130/80. Low-sodium diet encouraged. Will continue to monitor. Verbalized understanding and agreed with treatment plan. (2) Type 2 diabetes mellitus: Code(s): E11.9 - Type 2 diabetes mellitus without complications Category: Medical Plan: A1c today is 8.3%, above goal of less than 7.0%. Previous A1c on 06/14/2024 was 7.5%. Will increase metformin ER to 1000 mg twice daily; advised to take as prescribed. ADA diet and routine exercise encouraged. Advised to monitor fasting and random glucose daily, record readings, and bring to next appointment. Report hypoglycemic episodes. Follow-up in 1 month or sooner with symptoms or concerns. Verbalized understanding and agreed with treatment plan. (3) Hyperlipidemia: Code(s): E78.5 - Hyperlipidemia, unspecified Category: Medical Plan: His last lipid panel blood work was in 05/2024; elevated triglycerides, total cholesterol, and LDL, HDL was slightly low. He has not been taking atorvastatin since he ran out of refills last fall. Atorvastatin 20 mg daily refilled; advised to take as prescribed every night. Encouraged to limit foods high in saturated fat and avoid foods high in trans fat. Routine exercise encouraged. Fast for 10-12 hours, may drink water, and perform lipid panel blood work 2-3 days before next visit. Follow-up in 1 month. Verbalized understanding and agreed with the plan. Orders: Orders AMB Hemoglobin A1c Today Z13.9 - Encounter for screening, unspecified Medications: Changed From metformin ER 1000 mg QAM 500 mg QPM 30 days 90 tabs 0RF To metformin ER 1000 mg QAM and 1000 mg QPM 30 days 90 tabs 1RF From atorvastatin 20 mg PO DAILY 30 days 30 tabs 3RF To atorvastatin 20 mg PO DAILY 90 days 90 tabs 1RF
[2024-12-06 11:40] VITALS: BP 130/78; PULSE 76; RESP 14; TEMP 37.1; O2SAT 96; BMI 35.6
[2024-12-06 12:19] VITALS: BP 126/78
== END 2024-12-06 12:20 | disposition home or self-care (01) ==
PROVIDERS: PCP Nurse Practitioner Family; Visit Provider Nurse Practitioner Family
DX: I10 Essential (primary) hypertension (principal); E11.9 Type 2 diabetes mellitus without complications; E78.5 Hyperlipidemia, unspecified; Z13.9 Encounter for screening, unspecified

== ENCOUNTER → 2024-12-06 11:26 | Outpatient (BNVA) | payer OTHER, SELFPAY | PROVIDERS: PCP Nurse Practitioner Family; Visit Provider Nurse Practitioner Family | DX: I10 Essential (primary) hypertension (principal); E78.5 Hyperlipidemia, unspecified; E11.9 Type 2 diabetes mellitus without complications | CPT/HCPCS: 83036; 99212 ==

== ENCOUNTER → 2025-02-21 11:34 | Outpatient (BNVA) | payer OTHER, SELFPAY | PROVIDERS: PCP Nurse Practitioner Family; Visit Provider Nurse Practitioner Family ==

== ENCOUNTER 2025-02-21 11:56 | Outpatient (REF) | payer OTHER, SELFPAY ==
[2025-02-21 15:09] LABS: Cholesterol 176 mg/dL (<200); HDL Cholesterol 39 mg/dL (>40); LDL Cholesterol Calculated 115 mg/dL (<100); Triglycerides 112 mg/dL (<150)
== END 2025-02-21 11:57 | disposition home or self-care (01) ==
LOC: HO.WFDLDS 11:56
PROVIDERS: Visit Provider Nurse Practitioner Family
DX: E78.5 Hyperlipidemia, unspecified (principal)
CPT/HCPCS: 36415; 80061

== ENCOUNTER 2025-05-23 09:23 | Outpatient (AMB) | payer OTHER, SELFPAY ==
--- NOTE | 2025-05-23 09:27 | MHC.PC.OV ---
Vital Signs 05/23/25 09:35 Height 5 ft 7 in Weight 221 lb BMI 34.6 BP 118/64 Blood Pressure Location Lt brachial Position Sitting Respiration 16 Pulse 74 Pulse Source Pulse Oximeter Temp 98.7 F Temp Source Temporal Artery Scan Pulse Oximetry (%) 96 Oxygen Delivery Method Room Air Intake Visit Reasons: HTN DM HLD Intake Note: Clinton presents in the office today to follow up to his hypertension, diabetes and cholesterol. Allergies No Known Allergies Allergy (Verified 05/23/25 09:49) Medication List - Last Reconciled 05/23/25 by Concha Garcia CNP acetaminophen (Tylenol Extra Strength) 500 mg PO Q6H PRN aripiprazole (Abilify) 5 mg PO BEDTIME atorvastatin 20 mg PO DAILY 90 days blood sugar diagnostic (CrossLoopuch Ultra Test strips) POC testing TID blood-glucose meter (CrossLoopuch Ultra2 Meter) POC testing TID cholecalciferol (vitamin D3) 125 mcg PO DAILY doxepin 25 mg PO BEDTIME escitalopram oxalate (Lexapro) 20 mg PO DAILY lancets (CrossLoopuch UltraSoft 2 Lancet) POC testing TID metformin ER 1000 mg QAM and 1000 mg QPM - Blister pack 30 days trazodone 50 mg PO BEDTIME PRN Tobacco use date assessed: 05/23/25 Dental Screening Dental Screen Date: 05/23/25 Did you have a dental visit in the last 12 months?: No Did you have a dental problem in the last 6 months where you did not have access to dental care?: No Was dental information given to patient?: Patient has dentist HPI HPI Comments History of Present Illness Details 54-year-old male presents for hypertension, hyperlipidemia, and diabetes follow-up. He admits to taking his medications as prescribed without adverse reactions. She brought a low of his blood glucose in the past 10 days. His blood glucose have been between 88 and 218. He notes that he has been making healthy lifestyle changes. He offers no complaints and denies acute symptoms at this time. He request a clearance letter to be able to exercise at the [facility] Medical History Tremor Insomnia Depression Anxiety Diabetes Surgical History History of appendectomy Family History Mother Alcoholism Father Alcoholism Other Mental health disorder Substance abuse Social History (Updated 05/23/25 @ 09:34 by Fiorella Cates MA) Household Members: Family Both parents involved: No Caregiver staying overnight: No Housing: Apartment Are you a primary healthcare economics consultant to a significant other at home: No Do you presently have visiting nurse or other home services: Yes 75 years or older and lives alone: No Alcohol intake: current Alcohol intake frequency: holidays/special occasions only Alcohol type: beer Patient Tobacco Use Status: Current everyday Tobacco user Cigarette Packs Per Day: 0.5 Cigarettes Per Day: 10 Years Smoked: 30 e-Cigarette/Vaping Use: Never Used Second Hand Smoke Exposure: Yes Substance Use Type: Marijuana service: No Current occupational status: unemployed Cognitive needs: No Hearing needs: No Vision needs: No Questionnaire PHQ-9 Over the last 2 weeks, how often have you been bothered by any of the following problems? 1. Little interest or pleasure in doing things: not at all 2. Feeling down, depressed, or hopeless: several days 3. Trouble falling or staying asleep, or sleeping too much: several days 4. Feeling tired or having little energy: not at all 5. Poor appetite or overeating: not at all 6. Feeling bad about yourself - or that you are a failure or have let yourself or your family down: several days 7. Trouble concentrating on things, such as reading the newspaper or watching television: not at all 8. Moving or speaking so slowly that other people could have noticed. Or the opposite - being so fidgety or restless that you have been moving around a lot more than usual: not at all 9. Thoughts that you would be better off or of hurting yourself in some way: not at all Total score: 3 Depression Screening Interpretation: Negative Depression Screening Done: Yes 68631 - PHQ-9 Billing: Yes Source: Developed by Drs. Bala Gagnon, Denita Avila, Theodore Cleaning and colleagues, with an educational leyla from [employer]. Thrive Questionnaire Date Thrive assessed: 05/23/25 I am a: Patient What is your living situation today?: I have a steady place to live Within the past 12 months, did the food you bought not last and you didn't have the money to get more?: Sometimes True Within the past 12 months, did you worry whether your food would run out before you got money to buy more?: Sometimes True Do you have trouble paying for medicines?: No Do you have trouble getting transportation to medical appointments?: No Do you have trouble paying your heating and electricity bill?: Yes Do you have trouble taking care of your child, family member or friend?: No Do you have trouble with day-to-day activities such as bathing, preparing meals, shopping, managing finances, etc.?: I choose not to answer this question Are you currently unemployed and looking for a job?: Yes Are you interested in more education?: No Please select the resources that you would like help with: Food Currently or been in a relationship where the following occur: I choose not to answer THRIVE Score: 3 AVIS-7 AMB Questionnaire AVIS-7 Date AVIS - 7 assessed: 05/23/25 Feeling nervous, anxious, or on edge: 1 = Several days Not being able to stop or control worryin = Several days Worrying too much about different things: 1 = Several days Trouble relaxin = Not at all Being so restless that it is hard to sit still: 1 = Several days Becoming easily annoyed or irritable: 0 = Not at all Feeling afraid as if something awful might happen: 0 = Not at all Total AVIS-7 score (0-4 normal; 5-9 mild; 10-14 moderate; 15-21 severe): 4 Source: Developed by Drs. Bala Gagnon, Denita Avila, Theodore Cleaning and colleagues, with an educational leyla from [employer]. AVIS-7 Assessment Billing AVIS-7 Assessment Tool: AVIS-7 Assessment 95454 Review of Systems Const Details: Const Denies chills, Denies fatigue, Denies fever(s), Denies headache(s) and Denies weakness ENT Denies dizziness and Denies headache(s) Card Denies chest pain, Denies lightheadedness, Denies dyspnea and Denies other (Palpitations) Resp Denies cough, Denies dyspnea, Denies wheezing and Denies other ( shortness of breath) GI Denies abdominal pain, Denies melena, Denies hematochezia, Denies change in bowel habits, Denies dyspepsia and Denies nausea Denies hematuria and Denies dysuria Musc Denies abnormal gait, Denies myalgias, Denies arthralgias, Denies numbness and Denies tingling Skin/Breast Denies rash, Denies unusual bruising and Denies wounds Neuro Denies abnormal gait, Denies dizziness, Denies headache(s), Denies memory loss, Denies numbness, Denies Sensory deficit (Neuro), Denies tingling and Denies weakness Psych Denies anxiety, Denies depression, Denies memory loss Endo Denies cold intolerance, Denies fatigue, Denies heat intolerance, Denies polydipsia and Denies polyuria Aller/Immun Denies wheezing Physical exam (Primary Care) Vital Signs: Last Vital Signs Temp 98.7 F 05/23/25 09:35 Pulse 74 05/23/25 09:35 BP 118/64 05/23/25 09:35 Pulse Ox 96 05/23/25 09:35 Oxygen Delivery Method Room Air 05/23/25 09:35 BMI result Body Mass Index 34.6 Tobacco/Smoking Status: Tobacco use Status Tobacco use date assessed 05/23/25 05/23/25 09:44 Patient Tobacco Use Status Current everyday Tobacco 05/23/25 09:34 e-Cigarette/Vaping Use Never Used 05/23/25 09:34 PHQ-9: PHQ-9 Score PHQ-9: Total score 3 05/23/25 09:44 Depression Screening Interpretation: Negative Thrive Assessment: Date of Thrive Assessment Date Thrive assessed 05/23/25 05/23/25 09:44 Currently or been in a relationship where the following occur: I choose not to answer Const Other: General: no acute distress and well developed Nutritional Appearance: well nourished Orientation/consciousness: patient oriented x3 HENMT Head: Yes normocephalic and Yes atraumatic Eyes General: appearance normal, both eyes and all related structures Pupils: Equal, round and reactive pupils present EOM: EOMs intact bilaterally Resp Effort & Inspection: normal respiratory effort Auscultation: clear to auscultation bilaterally Cardio Rate: regular rate Rhythm: regular rhythm Heart sounds: S1 normal heart sound present, S2 normal heart sound present, no gallops, no murmurs and no rubs GI Palpation (GI): No Abdominal aortic bruit present, Soft to palpation, nontender, No hepatosplenomegaly present and No Rebound tenderness present Auscultation: normal bowel sounds General: Yes no CVA tenderness Back/Spine/Pelvis Back: no CVA tenderness Cervical Spine: cervical ROM normal and No Cervical spine tenderness Thoracic/Lumbar Spine: thoraco-lumbar ROM normal, No pain with thoraco-lumbar ROM, No thoracic spinal tenderness and No lumbar spinal tenderness Extrem General: Yes normal to inspection, No edema and No calf tenderness Skin General: warm and dry. Normal skin color. Normal skin turgor Neuro General: patient oriented x3, gait normal and no focal neuro deficit Cranial nerves: Yes Equal, round and reactive pupils present Cognition (Neuro): normal cognition Gait exam (Neuro): Normal gait present Sensory Exam: No Sensory deficit (Neuro) Psych Appearance: grossly normal Affect: normal affect Attitude: cooperative Thought process: Normal thought process present Results AMB Hemoglobin A1c AMB Hemoglobin A1c 6.6 % Last Edit by Fiorella Cates MA on 05/23/25 09:48 Coding Level of Care Code Est Pt Level 4 (46172) Diagnoses Type 2 diabetes mellitus E11.9 Hypertension I10 Hyperlipidemia E78.5 Additional Codes AVIS-7 Assessment Billing - AVIS-7 Assessment Tool: AVIS-7 Assessment 23653 ([id number]) PHQ-9 - 10124 - PHQ-9 Billing: Yes ([id number]) Assessment & Plan Assessment & Plan (1) Type 2 diabetes mellitus: Code(s): E11.9 - Type 2 diabetes mellitus without complications Category: Medical Plan: A1c today is 6.6%, within goal of less than 7.0%. Previous A1c was 8.3%. His home blood glucose have been between 88 and 218. Continue current treatment regimen. ADA diet and routine exercise encouraged. Clearance letter for exercise given. Follow-up in 3 months or sooner with symptoms or concerns. Verbalized understanding and agreed with the plan. (2) Hypertension: Code(s): I10 - Essential (primary) hypertension Category: Medical Plan: Resting blood pressure is 118/64, within goal of less than 130/80. Blood pressure is diet controlled. Low-sodium diet encouraged. Will continue to monitor. Verbalized understanding and agreed with the plan. (3) Hyperlipidemia: Code(s): E78.5 - Hyperlipidemia, unspecified Category: Medical Plan: Recent LDL is slightly elevated, 115, HDL is slightly low, 39. Triglycerides and HDL levels are normal. LDL goal is less than 100. Will increase atorvastatin to 40 mg daily; advised to take as prescribed. Advised to limit foods high in saturated fat and avoid foods high in trans fat. Routine exercise encouraged. Fast for 10-12 hours, may drink water, and perform lipid panel blood work 2-3 days before next visit. Follow-up in 3 months. Verbalized understanding and agreed with the plan. Orders: Orders AMB Hemoglobin A1c Today E11.9 - Type 2 diabetes mellitus without complications Medications: New atorvastatin (Lipitor) 40 mg PO BEDTIME 90 tabs 1RF 90 days Discontinued atorvastatin Discontinued Reason: Doctor's Order 20 mg PO DAILY 90 days 90 tabs 1RF
[2025-05-23 09:35] VITALS: BP 118/64; PULSE 74; RESP 16; TEMP 37.1; O2SAT 96; BMI 34.6
--- OUTSIDE RECORDS SUMMARY | 2025-05-23 09:53 | XMS_ITS | Clinical Summary ---
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 Name Role Phone Concha Garcia ASSISTANT KITCHEN MANAGER Primary Care Provider [phone] Surgical History Surgery Date Site/Laterality Comments APPENDECTOMY 1990 PROCEDURE: HISTORICAL APPENDECTOMY; COMMENT: [facility] Medical History Medical History Date Comments Diabetes mellitus (CMS/HCC V 24, CMS/HCC V28) DX:Diabetes mellitus (HCC) HTN (hypertension) DX:HTN (hyper tension) Depression DX:Depression Depression 01/06/2012 DX:Depression Anxiety disorder 01/06/2012 DX:Anxiety diso rder Tobacco use disorder 01/06/2012 DX:Tobacco use disorder Abnormal EKG 12/14/2013 DX:Abnormal EKG Morbid obesity (CMS/HCC V24, CMS/HCC V28) 12/14/2013 DX:Morbid obesity (HCC) Obesity 10/06/2015 DX:Obesity Left inguinal hernia 10/18/2016 DX:Left ing uinal hernia Adenoma of left adrenal gland DX :Adenoma of left adrenal gland; COMMENT: benign per radiology report Benítez 10/08/16 Family History Medical History Relation Name Comments Colon cancer Other 1 neg hx Breast cancer Other 2 neg hx Other: ovarian cancer Other 3 neg hx Prostate cancer Other 4 neg hx Relation Name Status Comments Brother Alive Father UNK cause/age, went blind Maternal Grandfather Maternal Grandmother CT unk age Mother Alive hip surgery, in a wheelchair Other 1 Other 2 Other 3 Other 4 Other 5 Paternal Grandfather Paternal Grandmother Sister Alive times 3 Son Alive times 2, one bi ological and one step Social History Tobacco Use Types Packs/Day Years Used Date Smoking Tobacco: Every Day Cigarettes Smokeless Tobacco: Never Alcohol Use Standard Drinks/Week Comments No 0 (1 standard drink = 0.6 oz pur e alcohol) Sex and Gender Information Value Date Recorded Sex Assigned at Not on file Legal Sex Male 8:37 PM EST Gender Identity Not on file Sexual Orientation Not on file Obstetrics History Plan of Treatment Upcoming Encounters Date Type Department Care Team ([facility] st Contact Info) Description 06/23/2025 9:00 AM EDT Consult Orthopedic Surgery - [place] [address] [facility] [address] [place] [id number] Wyatt Bonner, MAGALI [address] [facility] [address] [place] [address] Health Maintenance Due Date Last Done Comments Diabetes: Annual GFR (Glomerular Filtration Rate) 1971 Diabetes: Annual Foot Exam 1981 Diabetes: Annual Retina Eye Exam 1981 Pneumococcal Vaccine: 50+ Years (2 of 2 - PCV) 06/17/2018 06/17/2017, 01/20/2012 Zoster Vaccines (1 of 2) 2021 DTaP,Tdap,and Td Vaccines (2 - Td or Tdap) 01/19/2022 01/20/2012 Cholesterol Screening (Lipid Panel) 09/28/2022 Colorectal Cancer Screening: Colonoscopy 09/28/2022 Diabetes: Annual Urine Albumin-Creatinine Ratio (uACR) 09/28/2022 Diabetes: Blood Sugar Control Test (HGBA1C) 09/28/2022 HIV Screening 09/28/2022 Hepatitis C Screening 09/28/2022 Hypertension/CHF/CAD Annual BMP Blood Test 09/28/2022 Medicare Annual Wellness Visit 09/28/2022 Social Influencers of Health Screening 09/28/2022 COVID-19 Vaccine ( season) 2024 Depression Screening 10/20/2024 Influenza Vaccine (#1) 2025 9, 06/17/2017, 09/27/2016, Additional history exists Hepatitis B Vaccines Completed 05/10/2015, 11/10/2014, 10/05/2014 HIB Vaccines Aged Out No longer eligi ble based on patient's age to complete this topic HPV Vaccines Aged Out No longer eligi ble based on patient's age to complete this topic Hepatitis A Vaccines Aged Out No long er eligible based on patient's age to complete this topic IPV Vaccines Aged Out No longer eligi ble based on patient's age to complete this topic MMR Vaccines Aged Out No longer eligi ble based on patient's age to complete this topic Meningococcal ACWY Vaccine Aged Out N o longer eligible based on patient's age to complete this topic Meningococcal B Vaccine Aged Out No l onger eligible based on patient's age to complete this topic RSV Immunization Patients Under 20 months Aged Out No longer eligible based on patient's age to complete this topic Varicella Vaccines Aged Out No longer eligible based on patient's age to complete this topic Insurance [employer] MEDICARE Member Subscriber Plan / Payer (Ef fective 2025-Present) Name:TAYLOR MAR Relation to Subscriber:Self Name:Taylor Mar Payer ID:[id number] Group ID:[id number] Type:Not on file Address: [place] [address] [address] [address] Care Teams Scouring Machine Operator Relationship Specialty Start Date End Date Concha Garcia FNP [address] [place] [address] PCP - General Family Medicine 04/29/25
== END 2025-05-23 10:03 | disposition home or self-care (01) ==
LOC: HO.HMCFM 09:24
PROVIDERS: PCP Nurse Practitioner Family; Visit Provider Nurse Practitioner Family
DX: E11.9 Type 2 diabetes mellitus without complications (principal); I10 Essential (primary) hypertension; E78.5 Hyperlipidemia, unspecified

== ENCOUNTER → 2025-05-23 09:23 | Outpatient (BNVA) | payer OTHER, SELFPAY | PROVIDERS: PCP Nurse Practitioner Family; Visit Provider Nurse Practitioner Family | DX: E11.9 Type 2 diabetes mellitus without complications (principal); I10 Essential (primary) hypertension; E78.5 Hyperlipidemia, unspecified; Z79.899 Other long term (current) drug therapy; Z13.31 Encounter for screening for depression; Z13.39 Encounter for screening examination for other mental health and behavioral disorders | CPT/HCPCS: 83036; 96127; 99212 ==

== ENCOUNTER 2025-08-29 09:58 | Outpatient (AMB) | payer OTHER, SELFPAY ==
--- NOTE | 2025-08-29 10:11 | A.OFFPC_ITS ---
Vital Signs 08/29/25 10:18 Height 5 ft 7 in Weight 223 lb 2 oz BMI 34.9 BP 126/60 Blood Pressure Location Lt brachial Position Sitting Respiration 16 Pulse 52 Pulse Source Palpation Temp 97.7 F Temp Source Oral Pulse Oximetry (%) 97 Oxygen Delivery Method Room Air Intake Visit Reasons: 3 mos DM, HLD Intake Note: patient here fo 3 month follow up Utility Locate Technician Required: No Allergies No Known Allergies Allergy (Verified 08/29/25 10:35) Medication List - Last Reconciled 08/29/25 by Concha Garcia CNP acetaminophen (Tylenol Extra Strength) 500 mg PO Q6H PRN aripiprazole (Abilify) 5 mg PO BEDTIME atorvastatin (Lipitor) 40 mg PO BEDTIME 90 days blood sugar diagnostic (Cervalisuch Ultra Test strips) POC testing TID blood-glucose meter (Cervalisuch Ultra2 Meter) POC testing TID cholecalciferol (vitamin D3) 125 mcg PO DAILY doxepin 25 mg PO BEDTIME escitalopram oxalate (Lexapro) 20 mg PO DAILY lancets (Cervalisuch UltraSoft 2 Lancet) POC testing TID metformin ER 1000 mg QAM and 1000 mg QPM - Blister pack 30 days trazodone 50 mg PO BEDTIME PRN Tobacco use date assessed: 08/29/25 Dental Screening Dental Screen Date: 08/29/25 Did you have a dental visit in the last 12 months?: No Did you have a dental problem in the last 6 months where you did not have access to dental care?: No Was dental information given to patient?: Patient has dentist HPI HPI Comments History of Present Illness Details 55-year-old male, accompanied by group [facility] staff, presents for diabetes and hyperlipidemia follow-up. He admits to taking his medications as prescribed without adverse reactions. He notes that he has been making healthy lifestyle changes. No acute symptoms at this time. He did not perform lipid panel blood work which was inadvertently not ordered. FORMERLY [facility], [facility]1983 Medical History Tremor Insomnia Depression Anxiety Diabetes Surgical History History of appendectomy Family History Mother Alcoholism Father Alcoholism Other Mental health disorder Substance abuse Social History (Updated 05/23/25 @ 09:34 by Fiorella Cates MA) Household Members: Family Both parents involved: No Caregiver staying overnight: No Housing: Apartment Are you a primary career portals teacher to a significant other at home: No Do you presently have visiting nurse or other home services: Yes 75 years or older and lives alone: No Alcohol intake: current Alcohol intake frequency: holidays/special occasions only Alcohol type: beer Patient Tobacco Use Status: Current everyday Tobacco user Cigarette Packs Per Day: 0.5 Cigarettes Per Day: 10 Years Smoked: 30 e-Cigarette/Vaping Use: Never Used Second Hand Smoke Exposure: Yes Substance Use Type: Marijuana service: No Current occupational status: unemployed Cognitive needs: No Hearing needs: No Vision needs: No Questionnaire Thrive Questionnaire Date Thrive assessed: 12/06/24 I am a: Patient What is your living situation today?: I have a steady place to live Within the past 12 months, did the food you bought not last and you didn't have the money to get more?: Sometimes True Within the past 12 months, did you worry whether your food would run out before you got money to buy more?: Sometimes True Do you have trouble paying for medicines?: No Do you have trouble getting transportation to medical appointments?: No Do you have trouble paying your heating and electricity bill?: Yes Do you have trouble taking care of your child, family member or friend?: No Do you have trouble with day-to-day activities such as bathing, preparing meals, shopping, managing finances, etc.?: I choose not to answer this question Are you currently unemployed and looking for a job?: Yes Are you interested in more education?: No Please select the resources that you would like help with: Food Currently or been in a relationship where the following occur: I choose not to answer THRIVE Score: 3 AVIS-7 AMB Questionnaire AVIS-7 Date AVIS - 7 assessed: 05/23/25 Source: Developed by Drs. Bala Gagnon, Denita Avila, Theodore Cleaning and colleagues, with an educational leyla from [employer] Review of Systems Const Details: Const Denies chills, Denies fatigue, Denies fever(s), Denies headache(s) and Denies weakness ENT Denies dizziness and Denies headache(s) Card Denies chest pain, Denies lightheadedness, Denies dyspnea and Denies other (Palpitations) Resp Denies cough, Denies dyspnea, Denies wheezing and Denies other ( shortness of breath) GI Denies abdominal pain, Denies melena, Denies hematochezia, Denies change in bowel habits, Denies dyspepsia and Denies nausea Denies hematuria and Denies dysuria Musc Denies abnormal gait, Denies myalgias, Denies arthralgias, Denies numbness and Denies tingling Skin/Breast Denies rash, Denies unusual bruising and Denies wounds Neuro Denies abnormal gait, Denies dizziness, Denies headache(s), Denies memory loss, Denies numbness, Denies Sensory deficit (Neuro), Denies tingling and Denies weakness Psych Denies anxiety, Denies depression, Denies memory loss Endo Denies cold intolerance, Denies fatigue, Denies heat intolerance, Denies polydipsia and Denies polyuria Aller/Immun Denies wheezing Physical exam (Primary Care) Vital Signs: Last Vital Signs Temp 97.7 F 08/29/25 10:18 Pulse 52 08/29/25 10:18 Resp 16 08/29/25 10:18 BP 126/60 08/29/25 10:18 Pulse Ox 97 08/29/25 10:18 Oxygen Delivery Method Room Air 08/29/25 10:18 BMI result Body Mass Index 34.9 Tobacco/Smoking Status: Tobacco use Status Tobacco use date assessed 08/29/25 08/29/25 10:19 Patient Tobacco Use Status Current everyday Tobacco 08/29/25 10:11 e-Cigarette/Vaping Use Never Used 08/29/25 10:11 Thrive Assessment: Date of Thrive Assessment Date Thrive assessed 12/06/24 08/29/25 10:11 Currently or been in a relationship where the following occur: I choose not to answer Const Other: General: no acute distress and well developed Nutritional Appearance: well nourished Orientation/consciousness: patient oriented x3 HENMT Head: Yes normocephalic and Yes atraumatic Eyes General: appearance normal, both eyes and all related structures Pupils: Equal, round and reactive pupils present EOM: EOMs intact bilaterally Resp Effort & Inspection: normal respiratory effort Auscultation: clear to auscultation bilaterally Cardio Rate: regular rate Rhythm: regular rhythm Heart sounds: S1 normal heart sound present, S2 normal heart sound present, no gallops, no murmurs and no rubs GI Palpation (GI): No Abdominal aortic bruit present, Soft to palpation, nontender, No hepatosplenomegaly present and No Rebound tenderness present Auscultation: normal bowel sounds General: Yes no CVA tenderness Back/Spine/Pelvis Back: no CVA tenderness Cervical Spine: cervical ROM normal and No Cervical spine tenderness Thoracic/Lumbar Spine: thoraco-lumbar ROM normal, No pain with thoraco-lumbar ROM, No thoracic spinal tenderness and No lumbar spinal tenderness Extrem General: Yes normal to inspection, No edema and No calf tenderness Skin General: warm and dry. Normal skin color. Normal skin turgor Neuro General: patient oriented x3, gait normal and no focal neuro deficit Cranial nerves: Yes Equal, round and reactive pupils present Cognition (Neuro): normal cognition Gait exam (Neuro): Normal gait present Sensory Exam: No Sensory deficit (Neuro) Psych Appearance: grossly normal Affect: normal affect Attitude: cooperative Thought process: Normal thought process present Results AMB Hemoglobin A1c AMB Hemoglobin A1c 6.3 % Last Edit by WES Cheung on 08/29/25 10:43 Results Reviewed Results Reviewed: Laboratory Last Values Hgb A1c (Clinic) 6.3 % (4.0-6.0) H 08/29/25 10:14 Coding Level of Care Code Est Pt Level 3 (33869) Diagnoses Type 2 diabetes mellitus E11.9 Hyperlipidemia E78.5 Laboratory tests ordered as part of a complete physical exam (CPE) Z00.00 Assessment & Plan Assessment & Plan (1) Type 2 diabetes mellitus: Code(s): E11.9 - Type 2 diabetes mellitus without complications Category: Medical Plan: A1c today 6.3%, within goal of less than 7.0%. Previous A1c was 6.6%. Continue current treatment regimen. ADA diet and routine exercise encouraged. Will recheck A1c in 3 months. Verbalized understanding and agreed with the plan. (2) Hyperlipidemia: Code(s): E78.5 - Hyperlipidemia, unspecified Category: Medical Plan: Continue current treatment regimen. Advised to limit foods high in saturated fat and avoid foods high in trans fat. Routine exercise encouraged. Perform fasting lipid panel blood work and follow-up as planned. Verbalized understanding and agreed with the plan. (3) Laboratory tests ordered as part of a complete physical exam (CPE): Code(s): Z00.00 - Encounter for general adult medical examination without abnormal findings Category: Medical Plan: Fasting labs ordered as part of a complete physical exam. Advised to fast for at least 10 hours before getting labs drawn. May drink water Verbalized understanding and agreed with treatment plan. Orders: Orders Comprehensive [place]. Panel Fast Today Z00.00 - Encounter for general adult medical examination without abnormal findings Lipid Panel Today Z00.00 - Encounter for general adult medical examination without abnormal findings TSH reflex Free T4 Today Z00.00 - Encounter for general adult medical examination without abnormal findings Vitamin D 25-OH Total Today Z00.00 - Encounter for general adult medical examination without abnormal findings AMB Hemoglobin A1c Today Z13.9 - Encounter for screening, unspecified Complete Blood Count Auto Diff Today Z00.00 - Encounter for general adult medical examination without abnormal findings Microalbumin, Random (w Creat) Today Z00.00 - Encounter for general adult medical examination without abnormal findings UA CC w/rflx Micro + Cult Today Z00.00 - Encounter for general adult medical examination without abnormal findings PSA, Ultra Sensitive Today Z00.00 - Encounter for general adult medical examination without abnormal findings
[2025-08-29 10:18] VITALS: BP 126/60; PULSE 52; RESP 16; TEMP 36.5; O2SAT 97; BMI 34.9
--- OUTSIDE RECORDS SUMMARY | 2025-08-29 11:29 | XMS_ITS | Clinical Summary ---
Author Organization [facility] Address [address] [place] [address] Phone Care Team Providers Care Executive Talent Acquisition Consultant Name Role Phone Concha Garcia RECYCLING OR RUBBISH COLLECTOR Primary Care Provider [phone] Allergies Active Allergy Reactions Criticality Noted Date Comments Cat Dander 01/06/2012 Medications No known medications Encounters Date Type Department Care Team Description 08/18/2025 3:00 PM EDT Office Visit [facility] [address] [phone] Wyatt Bonner, DPM Controlled type 2 diabetes with neuropathy ([facility] V24, [facility] V28) (Primary Dx); Pain in toes of both feet; Arthritis of both feet; Dermatophytosis, nail 06/16/2025 2:30 PM EDT Office Visit [facility] [address] [phone] Wyatt Bonner, DPM Controlled type 2 diabetes with neuropathy ([facility] V24, [facility] V28) (Primary Dx); Pain in toes of both feet; Arthritis of both feet; Dermatophytosis, nail from Last 3 Months Surgical History Surgery Date Site/Laterality Comments APPENDECTOMY 1990 PROCEDURE: HISTORICAL APPENDECTOMY; COMMENT: [facility] Medical History Medical History Date Comments Diabetes mellitus ([facility] V 24, [facility] V28) DX:Diabetes mellitus (HCC) HTN (hypertension) DX:HTN (hyper tension) Depression DX:Depression Depression 01/06/2012 DX:Depression Anxiety disorder 01/06/2012 DX:Anxiety diso rder Tobacco use disorder 01/06/2012 DX:Tobacco use disorder Abnormal EKG 12/14/2013 DX:Abnormal EKG Morbid obesity ([facility] V24, [facility] V28) 12/14/2013 DX:Morbid obesity (HCC) Obesity 10/06/2015 [...] cause/age, went blind Maternal Grandfather Maternal Grandmother [place] unk age Mother Alive hip surgery, in [...] Upcoming Encounters Date Type Department Care Team (Late st Contact Info) Description 10/25/2025 1:00 PM EST Office Visit Orthopedic Surgery - [address] [phone] Wyatt Bonner, MAGALI [address] [phone] Health Maintenance Due Date Last Done Comments Colorectal Cancer Screening: Colonoscopy 1971 Diabetes: Annual GFR (Glomerular Filtration Rate) 1971 Diabetes: Annual Foot Exam 1981 Diabetes: Annual Retina Eye Exam 1981 Pneumococcal Vaccine: 50+ Years (2 of 2 - PCV) 06/17/2018 06/17/2017, 01/20/2012 RSV Immunization Adult Patients (1 - Risk 50-74 years 1-dose series) 2021 Zoster Vaccines (1 of 2) 2021 Cholesterol Screening (Lipid Panel) 09/28/2022 Diabetes: Annual Urine Albumin-Creatinine Ratio (uACR) 09/28/2022 Diabetes: Blood Sugar Control Test (HGBA1C) 09/28/2022 HIV Screening 09/28/2022 Hepatitis C Screening 09/28/2022 Hypertension/CHF/CAD Annual BMP Blood Test 09/28/2022 Medicare Annual Wellness Visit 09/28/2022 Social Influencers of Health Screening 09/28/2022 Depression Screening 10/20/2024 COVID-19 Vaccine (3 - season) 2025 03/02/2021, 02/09/2021 Influenza Vaccine (#1) 2025 9, 06/17/2017, 09/27/2016, Additional history exists DTaP,Tdap,and Td Vaccines (3 - Td or Tdap) 07/26/2035 07/26/2025, 01/20/2012 Hepatitis B Vaccines Completed 05/10/2015, 11/10/2014, 10/05/2014 [...] patient's age to complete this topic Insurance [facility] MEDICARE Member Subscriber Plan / Payer (Ef fective 2025-Present) Name:TAYLOR MAR Relation to Subscriber:Self Name:Taylor Mar Payer ID:[id number] Group ID:[id number] Type:Not on file Address: [address] [place] [id number] Care Teams Executive Talent Acquisition Consultant Relationship Specialty Start Date End Date Concha Garcia FNP [address] [facility] [place] [address] PCP - General Family Medicine 04/29/25
== END 2025-08-29 10:47 | disposition home or self-care (01) ==
LOC: HO.HMCFM 09:59
PROVIDERS: PCP Nurse Practitioner Family; Visit Provider Nurse Practitioner Family
DX: E11.9 Type 2 diabetes mellitus without complications (principal); E78.5 Hyperlipidemia, unspecified; Z00.00 Encounter for general adult medical examination without abnormal findings; Z13.9 Encounter for screening, unspecified

== ENCOUNTER → 2025-08-29 09:58 | Outpatient (BNVA) | payer OTHER, SELFPAY | PROVIDERS: PCP Nurse Practitioner Family; Visit Provider Nurse Practitioner Family | DX: E11.9 Type 2 diabetes mellitus without complications (principal); E78.5 Hyperlipidemia, unspecified; Z79.84 Long term (current) use of oral hypoglycemic drugs | CPT/HCPCS: 83036; 99212 ==

== ENCOUNTER 2025-09-07 09:53 | Outpatient (REF) | payer OTHER, SELFPAY ==
[2025-09-07 11:15] LABS: Appearance Urine Clear; Glucose Urine UA Negative (Negative); PH 6.5 (5.0-9.0); Specific Gravity - Urine 1.015 (1.005-1.025); UMIC TRIGGER UACC YES
[2025-09-07 11:18] LABS: MANUAL DIFF FLAG NO
[2025-09-07 11:26] LABS: Hematocrit 44.2 % (42.0-52.0); Hemoglobin 15.2 g/dl (14.0-18.0); Imm Gran Abs Auto 0.04 X10*3/uL (0.00-0.03); Imm Gran Pct Auto 0.5 % (0.0-0.4); Lymphocytes Absolute Auto 1.7 X10*3/uL (1.2-4.9); Mean Corpuscular HGB Conc 34.4 g/dl (31.0-36.0); Mean Corpuscular Hemoglobin 29.7 pg (27.0-33.0); Mean Corpuscular Volume 86.5 fL (80.0-98.0); NRBC Abs Auto 0.000 X10*3/uL (0.0-0.012); NRBC Pct Auto 0.0 /100WBC (0.0-0.2); Platelet Count 187 X10*3/uL (160-400); Red Blood Count 5.11 X10*6/uL (4.60-5.80); White Blood Count 8.0 X10*3/uL (4.8-10.8)
[2025-09-07 12:28] LABS: Microalbum/Creatinine Ratio Ur 3.0 ug/mg cr (<30)
[2025-09-07 13:31] LABS: Alanine Aminotransferase 45 U/L (0-40); Albumin Level 4.5 g/dL (3.5-5.0); Alkaline Phosphatase 81 U/L (39-117); Anion Gap 13 (12-20); Aspartate Amino Transferase 34 U/L (5-37); Blood Urea Nitrogen 8 mg/dL (9-16); Calcium 9.5 mg/dL (8.4-10.2); Carbon Dioxide 26 mmol/L (22-29); Chloride 100 mmol/L (96-108); Cholesterol 111 mg/dL (<200); Estimated Glomerular Filt Rate > 60; HDL Cholesterol 32 mg/dL (>40); Potassium 4.2 mmol/L (3.3-5.1); Sodium 135 mmol/L (135-145); Total Protein 7.0 g/dL (6.5-8.0); Triglycerides 123 mg/dL (<150)
--- OUTSIDE RECORDS SUMMARY | 2025-09-07 18:27 | XMS_ITS | Encounter Summary ---
Author Organization [facility] Address [address] [place] [address] Care Team Providers Care Port Steward Name Role Phone Betsy Bundy MD Primary Care Provider Nihcol Fields MD Primary Care Provider [phone] Encounter Details Date Type Department Care Team Description 09/27/2016 Orders Only Medicine/Pediatrics - [address] [phone] Violeta Mills PA-C Social History Tobacco Use [...] on filedocumented in this encounter Care Teams [place] Relationship Specialty Start Date End Date Betsy Bundy MD PCP - General Internal Medicine 09/05/15 03/22/21 Nichol Mcqueen MD PCP - General Internal Medicine 03/23/21 documented as of this encounter
--- OUTSIDE RECORDS SUMMARY | 2025-09-07 18:28 | XMS_ITS | Encounter Summary ---
Author Organization [facility] Address [address] [place] [address] Care Team Providers Care Regulator Tester Name Role Phone Nichol Mcqueen MD Primary Care Provider [phone] Reason for Visit * Reason Onset Date Comments medication problems 01/16/2022 Encounter Details Date Type Department Care Team Description 01/16/2022 Telephone Internal Medicine - [address], [address] [place], [place] [phone] Nichol Mcqueen MD [address] [place] [phone] medication problems Social History Tobacco Use [...] on filedocumented in this encounter Care Teams Regulator Tester Relationship Specialty Start Date End Date Nichol Mcqueen MD PCP - General Internal Medicine 03/23/21 documented as of this encounter
--- OUTSIDE RECORDS SUMMARY | 2025-09-07 18:28 | XMS_ITS | Encounter Summary ---
Author Organization [facility] Address [address] [place] [address] Care Team Providers Care Museum Specialist Name Role Phone Nichol Mcqueen MD Primary Care Provider [phone] Reason for Visit * Reason Onset Date Comments Faxed Refill 04/28/2023 Encounter Details Date Type Department Care Team Description 04/28/2023 Refill Internal Medicine - [address], [address] [place], [place] [phone] Nichol Mcqueen MD [address] [place] [phone] Faxed Refill Social History Tobacco Use [...] on filedocumented in this encounter Care Teams Museum Specialist Relationship Specialty Start Date End Date Nichol Mcqueen MD PCP - General Internal Medicine 03/23/21 documented as of this encounter
--- OUTSIDE RECORDS SUMMARY | 2025-09-07 18:28 | XMS_ITS | Encounter Summary ---
Author Organization [facility] Address [address] [place] [address] Care Team Providers Care Blacksmith Farm Name Role Phone Nichol Mcqueen MD Primary Care Provider [phone] Reason for Visit * Reason Onset Date Comments refill request 12/10/2022 Encounter Details Date Type Department Care Team Description 12/10/2022 Refill Internal Medicine - [address], [address] [place], [place] [phone] Nichol Mcqueen MD [address] [place] [phone] refill request Social History Tobacco Use [...] on filedocumented in this encounter Care Teams Blacksmith Farm Relationship Specialty Start Date End Date Nichol Mcqueen MD PCP - General Internal Medicine 03/23/21 documented as of this encounter
--- OUTSIDE RECORDS SUMMARY | 2025-09-07 18:28 | XMS_ITS | Encounter Summary ---
Author Organization [facility] Address [address] [place] [address] Care Team Providers Care Acoustical Installer Name Role Phone Nichol Mcqueen MD Primary Care Provider [phone] Reason for Visit * Reason Onset Date Comments Letter 08/20/2022 Encounter Details Date Type Department Care Team Description 08/20/2022 Telephone Internal Medicine - [address], [address] [place], [place] [phone] Nichol Mcqueen MD [address] [place] [phone] Letter Social History Tobacco Use Types Packs/Day Years Used Date Smoking Tobacco: Every Day Cigarettes 1 Smokeless Tobacco: Never Comments:quit 04/30/16 Alcohol Use Standard Drinks/Week Comments No 0 (1 standard drink = 0.6 oz pur e alcohol) Sex Assigned at Date Recorded Not on file documented as of this encounter Miscellaneous Notes * Telephone Encounter - Shady Tran M.A. - 10/09/2022 9:[address] Zamora I spoke with patient. He stated he needs two letters typed up. Please see below. General letters as you normally do for patients but stating this. 1st Letter for [employer] stating patient is capable to participate in physical activities at the [facility]. Looking to obtain a membership and this letter will be required. 2nd letter is for the [place]. Letter stating patient has diabetes and he's currently your patient. This is what patient stated to me on the phone. Once the letters are complete he would like them mailed, which I can do. Thank you very much. * Telephone Encounter - Fabián Zamora MD - 10/08/2022 5:30 PM EST Please check with the patient what kind of letter patient need. If patient have a sample tell the patient to send the sample. * Telephone Encounter - Belinda Sagastume - 10/08/2022 8:[address] Zamora please advise on status of letter patient saw you on 10/07/22 needs letter for the [facility] stating he is capable of participating in physical activities. Patient wants a [facility] membership and a letter is required. * Telephone Encounter - Araceli Sandhu - 10/07/2022 3:27 PM EST Patient seen today by dr. Zamora - checking if letter now will be submitted to the [facility] Substance of letter stating he is capable do participate in activity / physical Looking to obtain a membership and this letter is required from provider/ * Telephone Encounter - Belinda Sagastume - 08/22/2022 1:03 PM EDT Called patient no answer unable to leave message. If patient calls back please notify patient he has not seen the provider in a year and needs to schedule a follow up. Provider is not able to make letter without seeing patient. * Telephone Encounter - Nichol Mcqueen MD - 08/22/2022 6:43 AM EDT I just had a televisit with him 1 time a year ago He need to come for a follow-up * Telephone Encounter - Maxine Alfonso - 08/20/2022 1:41 PM EDT Letter requested for: [facility] of [facility] Reason for letter: Stating patient is able to be physically active Specific notations needed in body of letter: Unknown Date needed for completion: As soon as possible , not urgent When completed: Mailed to their home at: [address] [facility] [id number] documented in this encounter Plan of Treatment Not on file documented as of this encounter Visit Diagnoses Not on filedocumented in this encounter Care Teams Acoustical Installer Relationship Specialty Start Date End Date Nichol Mcqueen MD PCP - General Internal Medicine 03/23/21 documented as of this encounter
--- OUTSIDE RECORDS SUMMARY | 2025-09-07 18:28 | XMS_ITS | Encounter Summary ---
Author Organization [facility] Address [address] [place] [address] Care Team Providers Care Steamboat Pilot Name Role Phone Nichol Mcqueen MD Primary Care Provider [phone] Reason for Visit * Reason Comments E-prescribe Rx Request Encounter Details Date Type Department Care Team Description 04/29/2022 Refill Adult Medicine [address] [address] Nichol Mcqueen MD [address] [place] [phone] E-prescribe Rx Request Social History Tobacco Use [...] on filedocumented in this encounter Care Teams Steamboat Pilot Relationship Specialty Start Date End Date Nichol Mcqueen MD PCP - General Internal Medicine 03/23/21 documented as of this encounter
--- OUTSIDE RECORDS SUMMARY | 2025-09-07 18:28 | XMS_ITS | Encounter Summary ---
Author Organization [facility] Address [address] [place] [address] Care Team Providers Care Human Anatomy Teacher Name Role Phone Nichol Mcqueen MD Primary Care Provider [phone] Reason for Visit * Reason Onset Date Comments refill request 08/20/2022 Encounter Details Date Type Department Care Team Description 08/20/2022 Refill Internal Medicine - [address], [address] [place], [place] [phone] Nichol Mcqueen MD [address] [place] [phone] refill request Social History Tobacco Use Types Packs/Day Years Used Date Smoking Tobacco: Every Day Cigarettes 1 Smokeless Tobacco: Never Comments:quit 04/30/16 Alcohol Use Standard Drinks/Week Comments No 0 (1 standard drink = 0.6 oz pur e alcohol) Sex Assigned at Date Recorded Not on file documented as of this encounter Miscellaneous Notes * Telephone Encounter - Tonja Sandoval [place] - 08/20/2022 3:57 PM EDT Lab Results Component Value Date HGBA1C 6.8 10/30/2021 HGBA1C 9.0 11/09/2019 HGBA1C 10.1 07/06/2019 HGBA1C 12.4 03/30/2019 HGBA1C 9.5 06/09/2018 Lab Results Component Value Date NA 135 10/30/2021 K 4.1 10/30/2021 CO2 24 10/30/2021 CL 104 10/30/2021 BUN 12 10/30/2021 CREAT 0.93 10/30/2021 GLU 125 10/30/2021 ALB 4.0 10/30/2021 SGOT 25 10/30/2021 SGPT 46 10/30/2021 TBILI 0.3 10/30/2021 ALKPHOS 77 10/30/2021 TP 7.0 10/30/2021 CA 9.3 10/30/2021 GFR > 60 10/30/2021 BP Readings from Last 5 Encounters: 11/09/19 128/76 07/06/19 126/80 03/30/19 122/70 06/12/18 118/80 02/23/18 112/60 * Telephone Encounter - Maxine Alfonso - 08/20/2022 1:44 PM EDT Cynthia 05/10/2021 Nov 04/03/2023 documented in this encounter Plan of Treatment Not on file documented as of this encounter Visit Diagnoses Not on filedocumented in this encounter Care Teams Human Anatomy Teacher Relationship Specialty Start Date End Date Nichol Mcqueen MD PCP - General Internal Medicine 03/23/21 documented as of this encounter
--- OUTSIDE RECORDS SUMMARY | 2025-09-07 18:28 | XMS_ITS | Encounter Summary ---
Author Organization [facility] Address [address] [place] [address] Care Team Providers Care Talent Associate Name Role Phone Nichol Mcqueen MD Primary Care Provider [phone] Reason for Visit * Reason Onset Date Comments Faxed Refill 12/24/2021 Encounter Details Date Type Department Care Team Description 12/24/2021 Refill Adult Medicine [address] [address] Nichol Mcqueen MD [address] [place] [phone] Faxed Refill Social History Tobacco Use [...] N/A Patients current insurance carrier is: Payor: [employer] [facility] [employer] MCR / Plan: ONE C[facility] / Product Type: HMO [id number] documented in this encounter Plan of Treatment Not on file documented as of this encounter Visit Diagnoses Not on filedocumented in this encounter Care Teams Talent Associate Relationship Specialty Start Date End Date Nichol Mcqueen MD PCP - General Internal Medicine 03/23/21 documented as of this encounter
--- OUTSIDE RECORDS SUMMARY | 2025-09-07 18:28 | XMS_ITS | Encounter Summary ---
Author Organization [facility] Address [address] [place] [address] Care Team Providers Care Supervisor [employer] Name Role Phone Nichol Mcqueen MD Primary Care Provider [phone] Reason for Visit * Reason Onset Date Comments LAB WORK 04/11/2021 Encounter Details Date Type Department Care Team Description 04/11/2021 Telephone Internal Medicine - [address], [address] [place], [place] [phone] Nichol Mcqueen MD [address] [place] [phone] LAB WORK Social History Tobacco Use [...] all lab work to be done at [facility] [address], [place] [address] prior to his first audio visit with [facility] documented in this encounter Plan of Treatment Not on file documented as of this encounter Visit Diagnoses Not on filedocumented in this encounter Care Teams Supervisor [employer] Relationship Specialty Start Date End Date Nichol Mcqueen MD PCP - General Internal Medicine 03/23/21 documented as of this encounter
--- OUTSIDE RECORDS SUMMARY | 2025-09-07 18:28 | XMS_ITS | Clinical Summary ---
Author Organization [address] [facility] Address [address] [place] [address] Phone Care Team Providers Care School Business Administrator Name Role Phone Concha Garcia INTERNET AND E BUSINESS PROJECT MANAGER Primary Care Provider [phone] Allergies Active Allergy Reactions Criticality Noted Date Comments Cat Dander 01/06/2012 Medications No known medications Encounters Date Type Department Care Team Description 08/18/2025 3:00 PM EDT Office Visit Orthopedic [facility] [address] [phone] Wyatt Bonner, DPM Controlled type 2 diabetes with neuropathy ([facility] V24, [facility] V28) (Primary Dx); Pain in toes of both feet; Arthritis of both feet; Dermatophytosis, nail 06/16/2025 2:30 PM EDT Office Visit [facility] [address] [phone] Wyatt Bonner, DPM Controlled type 2 diabetes with neuropathy ([facility] V24, [facility] V28) (Primary Dx); Pain in toes of both feet; Arthritis of both feet; Dermatophytosis, nail from Last 3 Months Surgical History Surgery Date Site/Laterality Comments APPENDECTOMY 1990 PROCEDURE: HISTORICAL APPENDECTOMY; COMMENT: [facility] Medical History Medical History Date Comments Diabetes mellitus ([facility] V 24, [facility] V28) DX:Diabetes mellitus (HCC) HTN (hypertension) DX:HTN (hyper tension) Depression DX:Depression Depression 01/06/2012 DX:Depression Anxiety disorder 01/06/2012 DX:Anxiety diso rder Tobacco use disorder 01/06/2012 DX:Tobacco use disorder Abnormal EKG 12/14/2013 DX:Abnormal EKG Morbid obesity ([facility] V24, [facility] V28) 12/14/2013 DX:Morbid obesity (HCC) Obesity 10/06/2015 [...] cause/age, went blind Maternal Grandfather Maternal Grandmother PA unk age Mother Alive hip surgery, in [...] PM EST Office Visit Orthopedic Surgery - [address] [phone] Wyatt Bonner, MAGALI [address] [address] Health Maintenance Due Date Last Done Comments [...] patient's age to complete this topic Insurance [facility] MEDICARE Member Subscriber Plan / Payer (Ef fective 2025-Present) Name:TAYLOR MAR Relation to Subscriber:Self Name:Taylor Mar Payer ID:[id number] Group ID:[id number] Type:Not on file Address: [address] [place] [id number] Care Teams School Business Administrator Relationship Specialty Start Date End Date Concha Garcia FNP [address] [place] [phone] PCP - General Family Medicine 04/29/25
--- OUTSIDE RECORDS SUMMARY | 2025-09-07 18:28 | XMS_ITS | Encounter Summary ---
Author Organization [facility] Address [address] [place] [address] Care Team Providers Care Automatic Fancy Machine Operator Name Role Phone Nichol Mcqueen MD Primary Care Provider [phone] Reason for Visit * Reason Comments E-prescribe Rx Request Encounter Details Date Type Department Care Team Description 07/19/2021 Refill Internal Medicine - [address], [address] [place], [place] [phone] Nichol Mcqueen MD [address] [place] [phone] E-prescribe Rx Request Social History Tobacco [...] on filedocumented in this encounter Care Teams Automatic Fancy Machine Operator Relationship Specialty Start Date End Date Nichol Mcqueen MD PCP - General Internal Medicine 03/23/21 documented as of this encounter
--- OUTSIDE RECORDS SUMMARY | 2025-09-07 18:28 | XMS_ITS | Encounter Summary ---
Author Organization [facility] [employer] [facility] [employer] [facility] Address [address] [place] [address] Care Team Providers Care Filament Maker Name Role Phone Nichol Mcqueen MD Primary Care Provider [phone] Reason for Visit * Reason Onset Date Comments refill request 11/09/2021 Encounter Details Date Type Department Care Team Description 11/09/2021 Refill Internal Medicine - [address], [address] [place], [place] [phone] Nichol Mcqueen MD [address] [place] [phone] refill request Social History Tobacco Use [...] NO Patients current insurance carrier is: Payor: [employer] [facility] MCR / Plan: [facility] CARE [facility] / Product Type: HMO [id number] documented in this encounter Plan of Treatment Not on file documented as of this encounter Visit Diagnoses Not on filedocumented in this encounter Care Teams Filament Maker Relationship Specialty Start Date End Date Nichol Mcqueen MD PCP - General Internal Medicine 03/23/21 documented as of this encounter
--- OUTSIDE RECORDS SUMMARY | 2025-09-07 18:28 | XMS_ITS | Encounter Summary ---
Author Organization [facility] Address [address] [place] [address] Care Team Providers Care Ear Mold Laboratory Technician Name Role Phone Nichol Mcqueen MD Primary Care Provider [phone] Encounter Details Date Type Department Care Team Description 06/05/2021 Telephone Adult Medicine [address] [address] Nichol Mcqueen MD [address] [place] [phone] Social History Tobacco Use Types Packs/Day Years [...] on filedocumented in this encounter Care Teams Ear Mold Laboratory Technician Relationship Specialty Start Date End Date Nichol Mcqueen MD PCP - General Internal Medicine 03/23/21 documented as of this encounter
--- OUTSIDE RECORDS SUMMARY | 2025-09-07 18:28 | XMS_ITS | Encounter Summary ---
Author Organization [facility] Address [address] [place] [address] Care Team Providers Care Afterschool Babysitter Name Role Phone Betsy Bundy MD Primary Care Provider Nichol Fields MD Primary Care Provider [phone] Encounter Details Date Type Department Care Team Description 07/09/2016 Wellness Visit Medical Records [address] [place] [address] Juan Sullivan MD Social History Tobacco Use [...] on filedocumented in this encounter Care Teams Afterschool Babysitter Relationship Specialty Start Date End Date Betsy Bundy MD PCP - General Internal Medicine 09/05/15 03/22/21 Nichol Mcqueen MD PCP - General Internal Medicine 03/23/21 documented as of this encounter
--- OUTSIDE RECORDS SUMMARY | 2025-09-07 18:28 | XMS_ITS | Encounter Summary ---
Author Organization [facility] Address [address] [place] [address] Care Team Providers Care Geoscience Laboratory Technician Name Role Phone Juan Sullivan MD Primary Care Provider Unavail Betsy Garcia MD Primary Care Provider Nichol Fields MD Primary Care Provider [phone] Reason for Visit * Reason Onset Date Comments Pre-visit Diabetes Lab Adult Medicine 07/26/2013 Encounter Details Date Type Department Care Team Description 07/26/2013 Telephone Medicine/Pediatrics - [address] [phone] Juan Sullivan MD Pre-visit Diabetes Lab Adult [...] patients voice mail to return call to [facility]. If patient calls back, please instruct the patient to have their diabetes lab work completed at least 3 days prior to their upcoming appointment in Adult Medicine on 08/16/13 at 1:00 pm with Nanette Sullvian. Let the patient know our lab is open on the weekends in the [place] office only. The patient does not need to be fasting to complete the lab work. documented in this encounter Plan of Treatment Not on file documented as of this encounter Visit Diagnoses Not on filedocumented in this encounter Care Teams Geoscience Laboratory Technician Relationship Specialty Start Date End Date Juan Sullivan MD PCP - General Internal Medicine 11/08/11 09/04/15 Betsy Bundy MD PCP - General Internal Medicine 09/05/15 03/22/21 Nichol Mcqueen MD PCP - General Internal Medicine 03/23/21 documented as of this encounter
--- OUTSIDE RECORDS SUMMARY | 2025-09-07 18:29 | XMS_ITS | Encounter Summary ---
Author Organization [facility] Address [address] [place] [address] Care Team Providers Care Salon Designer Name Role Phone Betsy Bundy MD Primary Care Provider Nichol Fields MD Primary Care Provider [phone] Reason for Visit * Reason Onset Date Comments TEST RESULTS 11/17/2017 Encounter Details Date Type Department Care Team Description 11/17/2017 Telephone Medicine/Pediatrics - [address] [phone] Violeta Mills PA-C TEST RESULTS Social History Tobacco Use Types Packs/Day Years Used Date Smoking Tobacco: Former Cigarettes 1 Smokeless Tobacco: Never Comments:quit 04/30/16 Alcohol Use Standard Drinks/Week Comments No 0 (1 standard drink = 0.6 oz pur e alcohol) Sex Assigned at Date Recorded Not on file documented as of this encounter Miscellaneous Notes * Telephone Encounter - Violeta Mills PA-C - 11/17/2017 11:59 AM EST Thank you! Rx sent to pharmacy. * Telephone Encounter - Daphne Camp R.N. - 11/17/2017 11:44 AM EST He is opting for diet/exercise and glipizide. I told him the next step is insulin. He will join theY and begin a healthy life style- Violeta please choose glipizide--I PENDED 2----DC ONE- pharmacy selected. * Telephone Encounter - Violeta Mills PA-C - 11/17/2017 9:33 AM EST Please notify the patient that his blood sugars are up. His hemoglobin A1C is up to 9.8%. We discussed lifestyle modifications at the visit, but we also need to adjust his medication. If he is willing to really work on diet and exercise, I can add Glipizide to his meds to see if this helps. If he doesn't think he can put effort into lifestyle modifications then starting insulin would be a better option. Thank you documented in this encounter Plan of Treatment Not on file documented as of this encounter Visit Diagnoses Not on filedocumented in this encounter Care Teams Salon Designer Relationship Specialty Start Date End Date Betsy Bundy MD PCP - General Internal Medicine 09/05/15 03/22/21 Nichol Mcqueen MD PCP - General Internal Medicine 03/23/21 documented as of this encounter
--- OUTSIDE RECORDS SUMMARY | 2025-09-07 18:29 | XMS_ITS | Encounter Summary ---
Author Organization [facility] Address [address] [place] [address] Care Team Providers Care Local Company Refrigerated Truck Driver Name Role Phone Juan Sullivan MD Primary Care Provider Unavail able Betsy Bundy MD Primary Care Provider Unavaila Nichol Merida MD Primary Care Provider [phone] Encounter Details Date Type Department Care Team Description 12/26/2011 Release of Information Medical Records [address] [place] [address] Abstract, Provider Social History Tobacco Use Types Packs/Day Years Used Date Smoking Tobacco: Never Assessed Sex Assigned at Date Recorded Not on file documented as of this encounter Plan of Treatment Not on file documented as of this encounter Visit Diagnoses Not on filedocumented in this encounter Care Teams Local Company Refrigerated Truck Driver Relationship Specialty Start Date End Date Juan Sullivan MD PCP - General Internal Medicine 11/08/11 09/04/15 Betsy Bundy MD PCP - General Internal Medicine 09/05/15 03/22/21 Nichol Mcqueen MD PCP - General Internal Medicine 03/23/21 documented as of this encounter
[2025-09-15 08:19] LABS: PSA, Ultra Sensitive 0.68 ng/mL
== END 2025-09-07 09:54 | disposition home or self-care (01) ==
LOC: HO.WFDLDS 09:53
PROVIDERS: Visit Provider Nurse Practitioner Family
DX: Z00.00 Encounter for general adult medical examination without abnormal findings (principal); E11.9 Type 2 diabetes mellitus without complications; Z12.5 Encounter for screening for malignant neoplasm of prostate
CPT/HCPCS: 36415; 80053; 80061; 81001; 82043; 82306; 82570; 83036; 84153; 84443; 85025

== ENCOUNTER 2025-09-09 10:12 | Outpatient (AMB) | payer OTHER, SELFPAY ==
--- NOTE | 2025-09-09 10:17 | A.OFFPC_ITS ---
Vital Signs 09/09/25 10:28 Height 5 ft 7 in Weight 219 lb BMI 34.3 BP 111/56 L Blood Pressure Location Rt brachial Position Sitting Respiration 16 Pulse 61 Pulse Source Pulse Oximeter Temp 98.1 F Temp Source Oral Pulse Oximetry (%) 99 Oxygen Delivery Method Room Air Intake Visit Reasons: CPE Intake Note: patient here CPE Audio Specialist Required: No Allergies No Known Allergies Allergy (Verified 09/09/25 10:40) Medication List - Last Reconciled 09/09/25 by Concha Garcia CNP acetaminophen (Tylenol Extra Strength) 500 mg PO Q6H PRN aripiprazole (Abilify) 5 mg PO BEDTIME blood sugar diagnostic (Eureka TherapeuticsTouch Ultra Test strips) POC testing TID blood-glucose meter (Detectentuch Ultra2 Meter) POC testing TID cholecalciferol (vitamin D3) 125 mcg PO DAILY doxepin 25 mg PO BEDTIME escitalopram oxalate (Lexapro) 20 mg PO DAILY lancets ([employer]uch UltraSoft 2 Lancet) POC testing TID metformin ER 1000 mg QAM and 1000 mg QPM - Blister pack 30 days Tobacco use date assessed: 09/09/25 Dental Screening Dental Screen Date: 09/09/25 Did you have a dental visit in the last 12 months?: Yes Did you have a dental problem in the last 6 months where you did not have access to dental care?: No Was dental information given to patient?: Patient has dentist HPI HPI Comments History of Present Illness Details 55-year-old male presents for an extende d physical exam and review of recent lab results. He admits to taking his medications as prescribed without adverse reactions. He has not been taking atorvastatin since he recently ran out of refill and has not taken trazodone since prescribed. 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 Does not vape. Drinks 3-4 beers twice once monthly. Denies recreational drug use - Has been making healthy dietary choice s. Walks regularly, plans to start exercising at the [facility]. Reports difficulty falling and staying asleep, snores but never had a sleep study Health maintenance - Last eye exam was was a few years ago. Referred to Ophthalmology for routine eye exam - Last dental visit was in 04/2025 - Last Tdap was a month ago by [facility] ED - Vaccinated for pneumonia - He has never been vaccinated for shing les. Encouraged to get vaccinated for shingles at the local pharmacy - Has not been vaccinated for the flu ; receives vaccination today - He has never had a colonoscopy. Refer red to [facility] gastro[facility]ology - he was [facility] Specialists - Psychiatrist with [facility] Medical History (Updated 09/09/25 @ 11:22 by Concha Garcia CNP) Tremor Insomnia Depression Anxiety Diabetes Surgical History History of appendectomy Family History Mother Alcoholism Father Alcoholism Other Mental health disorder Substance abuse Social History Household Members: Family Both parents involved: No Caregiver staying overnight: No Housing: Apartment Are you a primary customer care agent to a significant other at home: No Do you presently have visiting nurse or other home services: Yes 75 years or older and lives alone: No Alcohol intake: current Alcohol intake frequency: holidays/special occasions only Alcohol type: beer Patient Tobacco Use Status: Current everyday Tobacco user Cigarette Packs Per Day: 0.5 Cigarettes Per Day: 10 Years Smoked: 30 e-Cigarette/Vaping Use: Never Used Second Hand Smoke Exposure: Yes Substance Use Type: Marijuana service: No Current occupational status: unemployed Cognitive needs: No Hearing needs: No Vision needs: No Questionnaire PHQ-9 Over the last 2 weeks, how often have you been bothered by any of the following problems? 1. Little interest or pleasure in doing things: not at all 2. Feeling down, depressed, or hopeless: several days 3. Trouble falling or staying asleep, or sleeping too much: several days 4. Feeling tired or having little energy: several days 5. Poor appetite or overeating: not at all 6. Feeling bad about yourself - or that you are a failure or have let yourself or your family down: not at all 7. Trouble concentrating on things, such as reading the newspaper or watching television: not at all 8. Moving or speaking so slowly that other people could have noticed. Or the opposite - being so fidgety or restless that you have been moving around a lot more than usual: not at all 9. Thoughts that you would be better off or of hurting yourself in some way: not at all Total score: 3 Depression Screening Interpretation: Negative Depression Screening Done: Yes 23324 - PHQ-9 Billing: Yes Source: Developed by Drs. Bala Gagnon, Denita Avila, Theodore Cleaning and colleagues, with an educational leyla from [employer]. Thrive Questionnaire Date Thrive assessed: 09/09/25 I am a: Patient What is your living situation today?: I have a steady place to live Within the past 12 months, did the food you bought not last and you didn't have the money to get more?: Never true Within the past 12 months, did you worry whether your food would run out before you got money to buy more?: Never true Do you have trouble paying for medicines?: No Do you have trouble getting transportation to medical appointments?: No Do you have trouble paying your heating and electricity bill?: No Do you have trouble taking care of your child, family member or friend?: No Do you have trouble with day-to-day activities such as bathing, preparing meals, shopping, managing finances, etc.?: No Are you currently unemployed and looking for a job?: Yes Are you interested in more education?: Yes Please select the resources that you would like help with: Job search/training and Education Currently or been in a relationship where the following occur: I choose not to answer THRIVE Score: 0 AUDIT C Alcohol Use Questionnaire (AUDIT-C) 1. How often do you have a drink containing alcohol?: Monthly or less 2. How many drinks containing alcohol do you have on a typical day when you are drinking?: 1 or 2 3. How often do you have six or more drinks on one occasion?: Never Total Score: 1 Score Reviewed/Action Taken: Yes AVIS-7 AMB Questionnaire AVIS-7 Date AVIS - 7 assessed: 09/09/25 Feeling nervous, anxious, or on edge: 1 = Several days Not being able to stop or control worryin = Several days Worrying too much about different things: 1 = Several days Trouble relaxin = Several days Being so restless that it is hard to sit still: 1 = Several days Becoming easily annoyed or irritable: 0 = Not at all Feeling afraid as if something awful might happen: 0 = Not at all Total AVIS-7 score (0-4 normal; 5-9 mild; 10-14 moderate; 15-21 severe): 5 Source: Developed by Drs. Bala Gagnon, Denita Avila, Theodore Cleaning and colleagues, with an educational leyla from [employer]. AVIS-7 Assessment Billing AVIS-7 Assessment Tool: AVIS-7 Assessment 22850 Review of Systems Const Details: Denies chills, Denies fatigue, Denies fever(s), Denies headache(s) and Denies weakness HEENT Denies change in vision, Denies dizziness, Denies headache(s), Denies hearing loss, Denies nasal congestion, Denies sinus pain, Denies sinus pressure and Denies sore throat Card Denies chest pain, Denies lightheadedness, Denies dyspnea and Denies other (palpitations) Resp Denies cough, Denies dyspnea and Denies wheezing GI Denies abdominal pain, Denies melena, Denies hematochezia, Denies change in bowel habits, Denies dyspepsia and Denies nausea Denies hematuria and Denies dysuria Musc Denies abnormal gait, Denies myalgias, Denies arthralgias, Denies numbness and Denies tingling Skin/Breast Denies rash, Denies unusual bruising and Denies wounds Neuro Denies abnormal gait, Denies dizziness, Denies headache(s), Denies memory loss, Denies numbness, Denies Sensory deficit (Neuro), Denies tingling and Denies weakness Psych Denies anxiety, Denies depression and Denies memory loss Endo Denies cold intolerance, Denies fatigue, Denies heat intolerance, Denies polydipsia and Denies polyuria Tod/Lymph Denies easy bleeding and Denies easy bruising Aller/Immun Denies wheezing Physical exam (Primary Care) Vital Signs: Last Vital Signs Temp 98.1 F 09/09/25 10:28 Pulse 61 09/09/25 10:28 Resp 16 09/09/25 10:28 BP 111/56 L 11/21/25 10:28 Pulse Ox 99 09/09/25 10:28 Oxygen Delivery Method Room Air 09/09/25 10:28 BMI result Body Mass Index 34.3 Tobacco/Smoking Status: Tobacco use Status Tobacco use date assessed 09/09/25 09/09/25 10:32 Patient Tobacco Use Status Current everyday Tobacco 09/09/25 10:18 e-Cigarette/Vaping Use Never Used 09/09/25 10:18 PHQ-9: PHQ-9 Score PHQ-9: Total score 3 09/11/25 20:34 Depression Screening Interpretation: Negative Thrive Assessment: Date of Thrive Assessment Date Thrive assessed 09/09/25 09/09/25 10:35 Currently or been in a relationship where the following occur: I choose not to answer Const Other: General: no acute distress, well developed, alert and awake Nutritional Appearance: well nourished Orientation/consciousness: patient oriented x3 HENMT Head: Yes normocephalic and Yes atraumatic Ears: hearing grossly normal, impacted cerumen to both ear occluding the TMs General nose exam: Normal external nose present and Normal nares present Mouth: Normal oral and palatal mucosa present and moist mucous membranes Teeth and gingiva: dentition normal with several missing teeth Throat: Yes oropharynx normal Eyes Pupils: Equal, round and reactive pupils present and Pupil accommodation reflex normal EOM: EOMs intact bilaterally Neck Neck: Yes normal visual inspection, Yes no lymphadenopathy and Yes trachea midline Thyroid: Thyroid normal Carotids: no bruits Lymphatic: no lymphadenopathy noted Chest Chest palpation & inspection: normal inspection of the chest Resp Effort & Inspection: normal respiratory effort Auscultation: clear to auscultation bilaterally Cardio Rate: regular rate Rhythm: regular rhythm Heart sounds: S1 normal heart sound present, S2 normal heart sound present, no gallops, no murmurs and no rubs Bruits: no abdominal aortic bruits and no carotid bruits GI Palpation (GI): No Abdominal aortic bruit present, Soft to palpation, nontender, No hepatosplenomegaly present and No Rebound tenderness present Auscultation: normal bowel sounds General: Yes no CVA tenderness Back/Spine/Pelvis Back: no CVA tenderness Cervical Spine: cervical ROM normal and No Cervical spine tenderness Thoracic/Lumbar Spine: thoraco-lumbar ROM normal, No pain with thoraco-lumbar ROM, No thoracic spinal tenderness and No lumbar spinal tenderness Skin General: warm and dry. Normal skin color. Normal skin turgor Lesions: no lesions Rashes: no rashes Trauma: no lacerations or abrasions Wounds: no wounds Nails: normal Neuro General: patient oriented x3, gait normal and CN's II-XI intact bilaterally Cranial nerves: Yes Equal, round and reactive pupils present Cognition (Neuro): normal cognition Gait exam (Neuro): Normal gait present Motor exam (neuro): 5/5 motor strength present throughout Sensory Exam: No Sensory deficit (Neuro) Deep tendon reflexes (DTR's): Right patellar reflex intensity grade: 2+ and Left patellar reflex intensity grade: 2+ Extrem General: Yes normal to inspection, No edema and No calf tenderness Psych Appearance: grossly normal Affect: normal affect Attitude: cooperative Thought process: Normal thought process present Office Procedures Flu Questionnaire Does the patient have a severe egg allergy?: No Does the patient have severe life threatening allergies?: No Does the patient have a fever or illness today?: No Has the patient ever had Guillain-[place] Syndrome?: No Has the patient ever had any past reaction to a flu shot?: No Immunizations Fluarix [id number] (PF) 45 mcg (15 mcg x 3)/0.5 mL IM syringe Performing Provider: Concha Garcia CNP Performing Location: [facility] Administered by: Sherin Stewart RN on 09/09/25 11:24 Dose Route Admin Location Dispensed Lot Number Expiration Date NDC Hosiery Bagger 0.5 mL IM Right Deltoid 0.5 mL [id number] 04/18/26 93315-926-49 [facility] Given Date VIS Provided VIS Publication Date 09/09/25 Single Vaccine 24 Eligibility Eligibility Date Funding Source Not [facility] Eligible 09/09/25 Private Coding Level of Care Code Est Pt Level 4 (50383) Est Pt Prev Care 40-64y(95195) Diagnoses Normal physical examination, routine Z00.00 Obesity (BMI 30-39.9) E66.9 Smoking F17.200 Impacted cerumen of both ears H61.23 Colon cancer screening Z12.11 Insomnia G47.00 Snoring R06.83 Additional Codes AVIS-7 Assessment Billing - AVIS-7 Assessment Tool: AVIS-7 Assessment 72788 ([id number]) PHQ-9 - 36002 - PHQ-9 Billing: Yes ([id number]) Assessment & Plan Assessment & Plan (1) Normal physical examination, routine: Code(s): Z00.00 - Encounter for general adult medical examination without abnormal findings Category: Medical Plan: No significant functional limitations noted. Continue current treatment regimen. Recent labs reviewed with unremarkable findings. Follow-up in 3 months for transfer of care with a new provider within the practice. Return sooner with symptoms or concerns. Verbalized understanding and agreed with the plan. (2) Obesity (BMI 30-39.9): Code(s): E66.9 - Obesity, unspecified Category: Medical Plan: He currently weighs 219 lb, BMI is 34.3. Declines referral to environmental conservation professor/dietitian or weight management clinic at this time. Healthy diet and routine exercise encouraged. Follow-up as needed. Verbalized understanding and agreed with the plan. (3) Smoking: Code(s): F17.200 - Nicotine dependence, unspecified, uncomplicated Category: Social Hx Plan: Smokes 10 cigarettes daily, has been smoking since 16 y/o. Instructed on the health risks and complications of smoking cigarettes and cessation encouraged. Declines treatment for nicotine dependence at this time. Follow-up as needed. Verbalized understanding and agreed with the plan. (4) Impacted cerumen of both ears: Code(s): H61.23 - Impacted cerumen, bilateral Category: Medical Plan: Significant amount of cerumen removed from both ear with ear lavage. Reports hearing improvement following the procedure. Follow-up as needed. Verbalized understanding and agreed with the plan. (5) Colon cancer screening: Code(s): Z12.11 - Encounter for screening for malignant neoplasm of colon Category: Medical Plan: He has never had a colonoscopy. Referred to [facility] gastroenterology. (6) Insomnia: Code(s): G47.00 - Insomnia, unspecified Category: Medical Plan: Reports difficulty falling and staying asleep. He snores but never had a sleep study. He has not taken trazodone since prescribed. Trazodone 50 mg at bedtime as needed for sleep reordered; advised to take as prescribed. Instructed on the risks, benefits, and potential adverse reactions of the medication. Instructed on sleep hygiene. Referred to [facility] sleep medicine. Follow-up as needed. Verbalized understanding and agreed with the plan. (7) Snoring: Code(s): R06.83 - Snoring Category: Medical Plan: Plan as above. Orders: Orders Influenza [id number] Immunization 09/09/25 Z23 - Encounter for immunization Referrals Sleep Medicine Referral G47.00 - Insomnia, unspecified, R06.83 - Snoring Gastroenterology Referral Z12.11 - Encounter for screening for malignant neoplasm of colon Medications: Changed From trazodone 50 mg PO BEDTIME PRN To trazodone 50 mg PO BEDTIME PRN 90 tabs 1RF insomnia 90 days Refilled atorvastatin (Lipitor) 40 mg PO BEDTIME 90 tabs 1RF 90 days
[2025-09-09 10:28] VITALS: BP 111/56; PULSE 61; RESP 16; TEMP 36.7; O2SAT 99; BMI 34.3
--- OUTSIDE RECORDS SUMMARY | 2025-09-09 10:49 | XMS_ITS | Clinical Summary ---
Author Organization [address] [facility] Address [address] [place] [address] Phone Care Team Providers Care Senior Support Engineer Name Role Phone Concha Garcia ASSOCIATE SCHOOL PSYCHOLOGIST Primary Care Provider [phone] Allergies Active Allergy Reactions Criticality Noted Date Comments Cat Dander 01/06/2012 Medications No known medications Encounters Date Type Department Care Team Description 08/18/2025 3:00 PM EDT Office Visit Orthopedic [facility] [address] [phone] Wyatt Bonner, DPM Controlled type 2 diabetes with neuropathy ([facility] V24, [facility] V28) (Primary Dx); Pain in toes of both feet; Arthritis of both feet; Dermatophytosis, nail 06/16/2025 2:30 PM EDT Office Visit [facility] [address] [phone] Wyatt Bonner, DPM Controlled type 2 diabetes with neuropathy ([facility] V24, [facility] V28) (Primary Dx); Pain in toes of both feet; Arthritis of both feet; Dermatophytosis, nail from Last 3 Months Surgical History Surgery Date Site/Laterality Comments APPENDECTOMY 1990 PROCEDURE: HISTORICAL APPENDECTOMY; COMMENT: [facility] Medical History Medical History Date Comments Diabetes mellitus ([facility] V 24, [facility] V28) DX:Diabetes mellitus (HCC) HTN (hypertension) DX:HTN (hyper tension) Depression DX:Depression Depression 01/06/2012 DX:Depression Anxiety disorder 01/06/2012 DX:Anxiety diso rder Tobacco use disorder 01/06/2012 DX:Tobacco use disorder Abnormal EKG 12/14/2013 DX:Abnormal EKG Morbid obesity ([facility] V24, [facility] V28) 12/14/2013 DX:Morbid obesity (HCC) Obesity 10/06/2015 [...] cause/age, went blind Maternal Grandfather Maternal Grandmother [place] unk age Mother Alive hip surgery, in [...] PM EST Office Visit Orthopedic Surgery - [address] [phone] Wyatt Bonner, MAGALI [address] [address] Health Maintenance Due Date Last Done Comments [...] patient's age to complete this topic Insurance [facility] MEDIC[facility] Member Subscriber Plan / Payer (Ef fective 2025-Present) Name:TAYLOR MAR Relation to Subscriber:Self Name:Taylor Mar Payer ID:[id number] Group ID:[id number] Type:Not on file Address: [address] [place] [address] Care Teams Senior Support Engineer Relationship Specialty Start Date End Date Concha Garcia FNP [address] [facility] [place] [address] PCP - General Family Medicine 04/29/25
== END 2025-09-09 11:23 | disposition home or self-care (01) ==
LOC: HO.HMCFM 10:13
PROVIDERS: PCP Nurse Practitioner Family; Visit Provider Nurse Practitioner Family
DX: Z23 Encounter for immunization (principal)

== ENCOUNTER → 2025-09-09 10:12 | Outpatient (BNVA) | payer OTHER, SELFPAY | PROVIDERS: PCP Nurse Practitioner Family; Visit Provider Nurse Practitioner Family | DX: Z00.01 Encounter for general adult medical examination with abnormal findings (principal); Z23 Encounter for immunization; F17.210 Nicotine dependence, cigarettes, uncomplicated; I10 Essential (primary) hypertension; E11.40 Type 2 diabetes mellitus with diabetic neuropathy, unspecified; E66.9 Obesity, unspecified; Z68.34 Body mass index [BMI] 34.0-34.9, adult; H61.23 Impacted cerumen, bilateral; G47.00 Insomnia, unspecified; R06.83 Snoring; Z13.31 Encounter for screening for depression; Z13.39 Encounter for screening examination for other mental health and behavioral disorders | CPT/HCPCS: 69209; 90471; 90656; 96127; 99396 ==